=== PATIENT | female | born 1990 | race African-American/Black ===

== ENCOUNTER 2021-12-13 21:30 | Observation (INO) | payer BC, SELFPAY ==
[2021-12-13 21:53] VITALS: BP 134/72; PULSE 87
[2021-12-13 22:00] VITALS: BP 135/69; PULSE 83
[2021-12-13 22:15] VITALS: BP 142/83; PULSE 93
[2021-12-13 22:30] VITALS: BP 118/72; PULSE 114
[2021-12-13 22:45] VITALS: BP 100/86
--- NOTE | 2021-12-30 11:36 | PM.OBTRLD ---
OB - Triage/Final Diagnosis Visit Information Comments/Additional reasons for admission: I have assessed the risk for this patient, Nadine Armendariz, and determined that she would benefit from observation care. Final Diagnosis (1) Decreased movement: Code(s): O36.8190 - Decreased movements, unspecified trimester, not applicable or unspecified Status: Acute
== END 2021-12-13 23:02 | disposition home or self-care (01) ==
PROVIDERS: Admitting Provider Obstetrics & Gynecology; Visit Provider Obstetrics & Gynecology
DX: O36.8190 Decreased fetal movements, unspecified trimester, not applicable or unspecified (principal); Z3A.00 Weeks of gestation of pregnancy not specified
CPT/HCPCS: G0378; G0379

== ENCOUNTER 2022-01-31 09:59 | Observation (INO) | payer BC, MEDICAID, SELFPAY ==
[2022-01-31 10:20] VITALS: BP 123/69; PULSE 118; BMI 36.3
[2022-01-31 10:30] VITALS: BP 121/65; PULSE 93
--- NOTE | 2022-01-31 10:33 | OBADM ---
This patient, Nadine Armendariz, admitted to the OB room [facility] Post [facility] for observation. Patient/family oriented to hospital policies and general routines including ID bracelet, bed and alarms, visiting hours, pain management, procedures, bathroom and other care routines, personal items, smoking policy, room service/diet, and visiting hours. Patient/Family are encouraged to report perceived risks to care and to ask questions if they do not understand what they are told or what they should do.
[2022-01-31 10:45] VITALS: BP 123/68; PULSE 85
--- NOTE | 2022-01-31 11:02 | PC.NURSE ---
SVE 1/thick/soft/-3
--- NOTE | 2022-02-18 17:31 | PM.OBTRLD ---
OB - Triage/Final Diagnosis Visit Information Comments/Additional reasons for admission: I have assessed the risk for this patient, Nadine Armendariz, and determined that she would benefit from observation care. Final Diagnosis (1) Feeling pelvic pressure during , antepartum: Code(s): O26.899 - Other specified related conditions, unspecified trimester; R10.2 - Pelvic and perineal pain Status: Acute
== END 2022-01-31 11:05 | disposition home or self-care (01) ==
PROVIDERS: Admitting Provider Student in an Organized Health Care Education/Training Program; Visit Provider Student in an Organized Health Care Education/Training Program
DX: O26.899 Other specified pregnancy related conditions, unspecified trimester (principal); R10.9 Unspecified abdominal pain; Z3A.00 Weeks of gestation of pregnancy not specified
CPT/HCPCS: G0378; G0379

== ENCOUNTER 2022-02-01 15:10 | Outpatient (CLI) | payer BC, MEDICAID, SELFPAY ==
[2022-02-01 15:30] LABS: Basophils Percent Auto 0.2 % (0.2-1.2); Eosinophils Absolute Auto 0.1 K/mm3 (0-0.3); Eosinophils Percent Auto 1.3 % (0-4.4); Hematocrit 36.8 % (37.0-47.0); Hemoglobin 12.5 g/dL (12.0-15.0); Immature Granulocyte Absolute 0.08 K/mm3 (0.00-0.031); Immature Granulocyte Percent A 0.8 % (0-0.5); Lymphocytes Absolute Auto 1.98 K/mm3 (0.9-3.2); Lymphocytes Percent Auto 18.6 % (18.3-44.2); Mean Corpuscular Hemoglobin 33.3 pg (26-34); Mean Corpuscular Volume 98.1 fl (80-100); Mean Platelet Volume 11.5 fl (7.4-10.4); Monocytes Absolute Auto 0.9 K/mm3 (0.1-0.6); Monocytes Percent Auto 8.6 % (2.6-8.5); Neutrophils Absolute Auto 7.5 K/mm3 (1.3-6.7); Neutrophils Percent Auto 70.5 % (45.5-73.1); Platelet Count Result 222 k/mm3 (150-375); Red Blood Count 3.75 M/mm3 (4.2-5.4); Red Cell Distribution Width 13.4 % (11.5-14.5); White Blood Count 10.6 K/mm3 (4.5-10.0)
[2022-02-01 16:23] LABS: HIV 1/2 Ab P24 Ag Result Negative (Negative)
[2022-02-01 19:26] LABS: Hepatitis C Virus Antibody Negative (Negative)
[2022-02-02 11:53] LABS: Rapid Plasma Reagin Non-Reactive (NonReactive)
== END 2022-02-01 15:11 | disposition home or self-care (01) ==
LOC: ANHLAB 15:16
PROVIDERS: Visit Provider Student in an Organized Health Care Education/Training Program
DX: Z34.90 Encounter for supervision of normal pregnancy, unspecified, unspecified trimester (principal); Z3A.00 Weeks of gestation of pregnancy not specified
CPT/HCPCS: 36415; 85025; 86592; 86703; 86803; G0432

== ENCOUNTER 2022-02-12 16:41 | Observation (INO) | payer BC, MEDICAID, SELFPAY ==
[2022-02-12 17:20] VITALS: TEMP 36.3
[2022-02-12 17:31] VITALS: BP 112/58; PULSE 98
[2022-02-12 17:45] VITALS: BP 122/62; PULSE 97
[2022-02-12 18:00] VITALS: BP 115/61; PULSE 106
[2022-02-12 18:15] VITALS: BP 121/62; PULSE 101
[2022-02-12 18:30] VITALS: BP 115/64; PULSE 103
--- NOTE | 2022-03-17 10:04 | PM.OBTRLD ---
OB - Triage/Final Diagnosis Visit Information Comments/Additional reasons for admission: I have assessed the risk for this patient, Kleberjuvenal Lyssa Armendariz, and determined that she would benefit from observation care. Final Diagnosis (1) Irregular uterine contractions: Code(s): O47.9 - False labor, unspecified Status: Acute
== END 2022-02-12 19:24 | disposition home or self-care (01) ==
PROVIDERS: Admitting Provider Student in an Organized Health Care Education/Training Program; Visit Provider Student in an Organized Health Care Education/Training Program
DX: O47.9 False labor, unspecified (principal); Z3A.00 Weeks of gestation of pregnancy not specified; O36.8190 Decreased fetal movements, unspecified trimester, not applicable or unspecified
CPT/HCPCS: 84112; G0378; G0379

== ENCOUNTER 2022-02-23 04:40 | Inpatient (IN) | payer BC, MEDICAID, SELFPAY ==
[2022-02-23] VITALS (189 sets, daily range): BP systolic 82–147; BP diastolic 25–108; PULSE 56–163; RESP 16–18; TEMP 36.2–37.1; O2SAT 89–100; BMI 36.6
--- NOTE | 2022-02-23 04:40 | LDADM ---
This patient, Nadine Armendariz, was admitted to Labor/Delivery/Recovery 106 on 02/23/22 at 04:40. Plans for labor, pain management and were discussed with patient. Patient/family oriented to hospital policies and general routines including ID bracelet, bed and alarms, visiting hours, pain management, procedures, bathroom and other care routines, personal items, smoking policy, room service/diet and guest tray routines, security routines, and visiting hours. Patient/Family are encouraged to report perceived risks to care and to ask questions if they do not understand what they are told or what they should do. See OBIX for further documentation.
[2022-02-23 05:32] LABS: Basophils Percent Auto 0.3 % (0.2-1.2); Eosinophils Absolute Auto 0.2 K/mm3 (0-0.3); Eosinophils Percent Auto 1.5 % (0-4.4); Hematocrit 33.9 % (37.0-47.0); Hemoglobin 11.5 g/dL (12.0-15.0); Immature Granulocyte Absolute 0.09 K/mm3 (0.00-0.031); Immature Granulocyte Percent A 0.8 % (0-0.5); Lymphocytes Absolute Auto 2.93 K/mm3 (0.9-3.2); Lymphocytes Percent Auto 25.2 % (18.3-44.2); Mean Corpuscular HGB Conc 33.9 g/dl (32-36); Mean Corpuscular Hemoglobin 32.7 pg (26-34); Mean Corpuscular Volume 96.3 fl (80-100); Mean Platelet Volume 11.8 fl (7.4-10.4); Monocytes Absolute Auto 0.9 K/mm3 (0.1-0.6); Monocytes Percent Auto 7.4 % (2.6-8.5); Neutrophils Absolute Auto 7.6 K/mm3 (1.3-6.7); Neutrophils Percent Auto 64.8 % (45.5-73.1); Platelet Count Result 194 k/mm3 (150-375); Red Blood Count 3.52 M/mm3 (4.2-5.4); Red Cell Distribution Width 13.3 % (11.5-14.5); White Blood Count 11.6 K/mm3 (4.5-10.0)
[2022-02-23] MEDS: LACTATED RINGERS 1,000 ML 125 ML IV CONT ×4 (05:45→14:46)
[2022-02-23] MEDS: AMPICILLIN 2 GM/NS 100 ML 2 GM/100 ML BAG IVPB (05:47)
[2022-02-23] MEDS: OXYTOCIN 30 UNITS/NS 500 ML 30 UNITS/500 ML BAG 6 UNITS IV CONT (05:48)
--- NOTE | 2022-02-23 06:28 | P.PNAN_ITS ---
Anes - Eval Pre Procedure Procedure: Labor epidural Date/Time: 02/23/22 06:28 Surgeon: zayra Preop Diagnosis: pain during labor Pre Op Diagnosis: Induction Patient Data Age: 31 Gender: F Height: 1.65 m Weight: 100 kg Last Vital Signs Temp 36.8 C 02/23/22 05:40 Pulse 62 02/23/22 06:16 BP 122/59 L 02/23/22 06:16 O2 Del Method Room Air 02/23/22 05:18 Allergies Allergy/AdvReac Type Severity Reaction Status Date / Time cephalexin Allergy Intermediate rash Verified 02/17/22 14:32 cefaclor Allergy Mild rash Verified 02/17/22 14:32 Home Medications Medication Instructions Recorded Confirmed Type vitamin with calcium 1 tablet PO DAILY 01/31/22 02/23/22 History no.72-iron 27 mg-folic acid 1 mg tablet (PrePlus) Laboratory Tests 02/23/22 02/23/22 05:25 05:25 WBC 11.6 K/mm3 H K/mm3 (4.5-10.0) RBC 3.52 M/mm3 L M/mm3 (4.2-5.4) Hgb 11.5 g/dL L g/dL (12.0-15.0) Hct 33.9 % L % (37.0-47.0) MCV 96.3 fl fl (80-100) MCH 32.7 pg pg (26-34) MCHC 33.9 g/dl g/dl (32-36) RDW 13.3 % % (11.5-14.5) Plt Count 194 k/mm3 k/mm3 (150-375) MPV 11.8 fl H fl (7.4-10.4) Immature Gran % (Auto) 0.8 % H % (0-0.5) Neut % (Auto) 64.8 % % (45.5-73.1) Lymph % (Auto) 25.2 % % (18.3-44.2) [place] % (Auto) 7.4 % % (2.6-8.5) Eos % (Auto) 1.5 % % (0-4.4) Baso % (Auto) 0.3 % % (0.2-1.2) Lymph # (Auto) 2.93 K/mm3 K/mm3 (0.9-3.2) [place] # (Auto) 0.9 K/mm3 H K/mm3 (0.1-0.6) Eos # (Auto) 0.2 K/mm3 K/mm3 (0-0.3) Baso # (Auto) 0.0 K/mm3 K/mm3 (0.0-0.1) Abs Immat Gran (auto) 0.09 K/mm3 H K/mm3 (0.00-0.031) Absolute Neuts (auto) 7.6 K/mm3 H K/mm3 (1.3-6.7) Absolute Nucleated RBC 0.0 K/mm3 K/mm3 (0.0-0.012) Nucleated RBC % 0.0 % % (0.0-0.2) RPR Pending Patient hx anesthesia problems: none Family hx anesthesia problems: none Results Review: All pre-operative results and documents have been reviewed as part of the pre- operative evaluation. [facility] Past Medical History Medical History History of 1 Surgical History Surgical History History of dilatation and curettage 03/2009 Family History Family History Father Diabetes mellitus Mother Hypertension Grandparent Diabetes mellitus Grandparent Diabetes mellitus Social History Social History Smoking status: Never smoker Substance use: never Spiritual care concerns: No Exam Day of Procedure 02/23/22 06:28
[2022-02-23] MEDS: AMPICILLIN 1 GM/NS 50 ML 1 GM/50 ML BAG IVPB ×3 (09:42→17:56)
[2022-02-23] MEDS: fentaNYL CITRATE INJ (*CRX) 100 MCG/2 ML VIAL 50 MCG IV PUSH (10:59)
--- NOTE | 2022-02-23 11:43 | PM.IMHP ---
H&P: HPI History of Present Illness Date/Time: 02/23/22 11:43 Chief Complaint: Elective induction of labor Narrative: Patient is a 31-year-old currently 39 weeks 3 days gestation with JESICA 02/27/2022 who presented to labor and delivery for a scheduled elective induction of labor. In general, patient reports feeling well today without complaints. Reports occasional contractions. Denies any vaginal bleeding or leakage of fluid. Reports good movement. Review of Systems Review of Systems: All systems reviewed & are unremarkable except as noted in HPI and below Constitutional: Constitutional: Reports as per HPI and Reports no additional constitutional complaints Eyes: Eyes: Reports as per HPI and Reports no additional eye complaints ENT: Reports system reviewed and no additional complaints, except as documented and Reports as per HPI Cardiovascular: Cardiovascular: Reports as per HPI and Reports no additional cardiovascular complaints Respiratory: Respiratory: Reports as per HPI and Reports no additional respiratory complaints Gastrointestinal: Gastrointestinal: Reports as per HPI and Reports no additional gastrointestinal complaints Genitourinary: Genitourinary: Reports no additional female genitourinary complaints and Reports as per HPI Musculoskeletal: Musculoskeletal: Reports no additional musculoskeletal complaints and Reports as per HPI Integumentary/Breasts: Skin/Breast: Reports system reviewed and no additional complaints, except as docu and Reports as per HPI Neurologic: Reports system reviewed and no additional complaints, except as documented and Reports as per HPI Psychiatric: Psychiatric: Reports no additional psychiatric complaints and Reports as per HPI Endocrine: Endocrine: Reports no additional endocrine complaints and Reports as per HPI Hematologic/Lymphatic: Hematologic/Lymphatic: Reports no additional hematologic/lymphatic complaints and Reports as per HPI Allergic/Immunologic: Allergic/Immunologic: Reports no additional allergic/immunologic complaints and Reports as per HPI PMFSH Past Medical History Medical History History of 1 Surgical History Surgical History History of dilatation and curettage 03/2009 Family History Family History Father Diabetes mellitus Mother Hypertension Grandparent Diabetes mellitus Grandparent Diabetes mellitus Social History Social History Smoking status: Never smoker Substance use: never Spiritual care concerns: No Meds Home Medications and Allergies Home Medications Medication Instructions Recorded Confirmed Type vitamin with calcium 1 tablet PO DAILY 01/31/22 02/23/22 History no.72-iron 27 mg-folic acid 1 mg tablet (PrePlus) Allergies Allergy/AdvReac Type Severity Reaction Status Date / Time cephalexin Allergy Intermediate rash Verified 02/17/22 14:32 cefaclor Allergy Mild rash Verified 02/17/22 14:32 Vital Signs Vital Signs - 24 hr 02/23/22 05:18 02/23/22 05:27 02/23/22 05:31 Temperature Pulse Rate 86 78 Respiratory Rate Blood Pressure 125/66 130/66 Oxygen Delivery Room Air 02/23/22 06:01 02/23/22 05:40 02/23/22 06:16 Temperature 36.8 C Pulse Rate 71 62 Respiratory Rate Blood Pressure 133/59 L 122/59 L Oxygen Delivery 02/23/22 06:31 02/23/22 06:36 02/23/22 06:46 Temperature 36.3 C L Pulse Rate 62 87 Respiratory Rate 18 Blood Pressure 131/66 108/63 Oxygen Delivery 02/23/22 07:01 02/23/22 07:16 02/23/22 07:31 Temperature Pulse Rate 86 74 67 Respiratory Rate Blood Pressure 116/59 L 119/59 L 113/55 L Oxygen Delivery 02/23/22 07:46 02/23/22 08:01 02/23/22 08:16 Temperature Pulse Rate 82 98 69 Respirat
--- NOTE | 2022-02-23 12:41 | PM.OBPNLAB ---
Pain Control Date/time seen: 02/23/22 12:41 Patient doing well. SVE /-2. AROM performed, clear fluid noted. EFM category 1. [place] shows contractions q2-3 mins. Continue pitocin and abx for GBS prophylaxis. Continuous EFM and toco.
--- NOTE | 2022-02-23 14:13 | WPDANESEPPF ---
Anes - Initial Pre Proc Eval Date/Time: 02/23/22 14:13 Surgeon: Caitlyn Patel MD Pre Op Diagnosis: Induction Patient Data Age: 31 Gender: F Height: 1.65 m Weight: 100 kg Last Vital Signs Temp 36.2 C L 02/23/22 11:04 Pulse 68 02/23/22 14:10 Resp 16 02/23/22 11:04 BP 135/69 02/23/22 14:10 Pulse Ox 100 02/23/22 14:12 O2 Del Method Room Air 02/23/22 05:18 Allergies Allergy/AdvReac Type Severity Reaction Status Date / Time cephalexin Allergy Intermediate rash Verified 02/17/22 14:32 cefaclor Allergy Mild rash Verified 02/17/22 14:32 Home Medications Medication Instructions Recorded Confirmed Type vitamin with calcium 1 tablet PO DAILY 01/31/22 02/23/22 History no.72-iron 27 mg-folic acid 1 mg tablet (PrePlus) Laboratory Tests 02/23/22 02/23/22 02/23/22 05:25 05:25 05:25 WBC 11.6 K/mm3 H K/mm3 (4.5-10.0) RBC 3.52 M/mm3 L M/mm3 (4.2-5.4) Hgb 11.5 g/dL L g/dL (12.0-15.0) Hct 33.9 % L % (37.0-47.0) MCV 96.3 fl fl (80-100) MCH 32.7 pg pg (26-34) MCHC 33.9 g/dl g/dl (32-36) RDW 13.3 % % (11.5-14.5) Plt Count 194 k/mm3 k/mm3 (150-375) MPV 11.8 fl H fl (7.4-10.4) Immature Gran % (Auto) 0.8 % H % (0-0.5) Neut % (Auto) 64.8 % % (45.5-73.1) Lymph % (Auto) 25.2 % % (18.3-44.2) [place] % (Auto) 7.4 % % (2.6-8.5) Eos % (Auto) 1.5 % % (0-4.4) Baso % (Auto) 0.3 % % (0.2-1.2) Lymph # (Auto) 2.93 K/mm3 K/mm3 (0.9-3.2) [place] # (Auto) 0.9 K/mm3 H K/mm3 (0.1-0.6) Eos # (Auto) 0.2 K/mm3 K/mm3 (0-0.3) Baso # (Auto) 0.0 K/mm3 K/mm3 (0.0-0.1) Abs Immat Gran (auto) 0.09 K/mm3 H K/mm3 (0.00-0.031) Absolute Neuts (auto) 7.6 K/mm3 H K/mm3 (1.3-6.7) Absolute Nucleated RBC 0.0 K/mm3 K/mm3 (0.0-0.012) Nucleated RBC % 0.0 % % (0.0-0.2) RPR Pending Blood Type O Positive Antibody Screen Negative Patient hx anesthesia problems: none Family hx anesthesia problems: none Results Review: All pre-operative results and documents have been reviewed as part of the pre-operative evaluation. [facility] Past Medical History Medical History History of 1 Surgical History Surgical History History of dilatation and curettage 03/2009 Family History Family History Father Diabetes mellitus Mother Hypertension Grandparent Diabetes mellitus Grandparent Diabetes mellitus Social History Social History Smoking status: Never smoker Substance use: never Spiritual care concerns: No Anes - Eval Final PreProcedure Day of Procedure 02/23/22 14:13 Patient weight: obese Neurological: alert and oriented Anesthetic plan: proceed Anesthesia type and monitoring: regional epidural and standard monitoring Results Review: All pre-operative results and documents have been reviewed as part of the pre-operative evaluation. Informed Consent: The patient's anesthetic plan and its attendant risks and benefits were discussed with the patient/family/POA. Questions were solicited and answers provided to the satisfaction of the patient/family/POA.
--- NOTE | 2022-02-23 16:20 | WPDHPUPDATE1 ---
History and Physical Update Update Date/Time: 02/23/22 11:50 History and Physical has been reviewed, including an updated exam of the patient. There are NO changes in the patient's condition. Risks, benefits, and alternatives have been discussed and questions answered. Patient agrees to proceed with procedure.
[2022-02-23] MEDS: OXYTOCIN 30 UNITS/NS 500 ML 30 UNITS/500 ML BAG 125 UNITS IV CONT (21:20)
--- NOTE | 2022-02-23 21:24 | P.PCNOB_ITS ---
OB - Delivery Note Procedure Delivery date: 02/23/22 Procedure: The patient is a 31-year-old now who presented to labor and delivery on the morning of 02/23/2022 at 39 weeks 3 days gestation for scheduled elective induction of labor. Patient was approximately 3 cm dilated at time of admission. Patient was started on antibiotics for GBS prophylaxis. Pitocin was started for induction of labor. Pitocin was slowly titrated throughout the morning, afternoon, and evening. Artificial rupture of membranes was performed at 12:11 p.m. Clear amniotic fluid was noted. Pitocin was continued. Patient became uncomfortable and requested an epidural for pain management which was pl aced without difficulty. An IUPC was placed for enhanced monitoring. Patient eventually progressed to fully dilated at 7:50 p.m. Patient was encouraged to push and found to be pushing well. She was prepped and draped for delivery. At 9:00 p.m., patient delivered infant head atraumatically and without difficulty in direct OA presentation. A compound presentation was noted as a hand delivered alongside face. Occiput restituted to maternal right side. With subsequent push, the infant's neck, shoulders, and rest of body delivered without difficulty. Terminal meconium was noted. Infant was noted to be floppy immediately after delivery. Infant was placed on maternal abdomen where care was assumed by awaiting nursing staff. Cord was clamped and cut. A segment of cord was collected for cord gases. Cord blood was collected. The placenta was delivered spontaneous and intact. Uterine fundus was noted to be firm with massage. On inspection, a superficial periurethral abrasion was noted. Gentle pressure was applied to area and abrasion was noted to be hemostatic. Estimated blood loss for entire delivery was 150 cc. The was a live-born male infant, Apgars 5 and 9, weighing 7 lbs. 5 oz. Both mother and baby doing well at end of delivery. Events: Elective Induction of Labor and Positive Group B Strep (GBS) Induction method: Per Pitocin Protocol Delivery augmentation: Rupture of Membranes Delivery monitor: External FHT, External Uterine and Internal Uterine Route of delivery: Laceration Description: Periurethral (superficial abrasion-no repair required) Specimen: Yes (cord blood and cord gases) Quantitative Blood Loss (ml): 150 Anesthesia type: Epidural Disposition: Floor Complications: No immediate complications [place] Baby Date of : 02/23/22 Time of : 21:00 Weeks of gestation at delivery: 39 (39.3) Weight (pounds): 7 Weight (ounces): 5 presentation: compound position: Other (direct OA) Placenta delivery description: Spontaneous Cord Vessel Description: 3 Vessels score one minute: 5 score five minutes: 9 AMG Delivery Billing Delivery Delivery: Delivery Charge
[2022-02-24] VITALS: BP 126/54; PULSE 98; RESP 16; TEMP 36.7
[2022-02-24] MEDS: IBUPROFEN 600 MG TABLET PO ×3 (03:05→17:02)
[2022-02-24 05:09] LABS: Hematocrit 34.4 % (37.0-47.0); Hemoglobin 11.8 g/dL (12.0-15.0)
[2022-02-24 07:29] LABS: Rapid Plasma Reagin Non-Reactive (NonReactive)
[2022-02-24 07:40] VITALS: BP 123/48; PULSE 74; RESP 18; TEMP 36.4; O2SAT 100
--- NOTE | 2022-02-24 09:16 | PM.OBPNVD ---
OB - PN: Subj Subjective Date/time seen: 02/24/22 09:16 Patient doing well this morning. Reports back pain that is well controlled medication. Minimal lochia. Ambulating without difficulty. OB - PN: Obj Data Labs CBC & Chem 7: 02/24/22 03:09 Labs: Laboratory Results - last 24 hr 02/23/22 02/24/22 05:25 03:09 Hgb 11.8 L Hct 34.4 L RPR Non-reactive OB - PN A/P Assessment and Plan (1) Normal spontaneous vaginal delivery: Code(s): O80 - Encounter for full-term uncomplicated delivery Status: Acute Assessment and Plan: PPD#1 doing well continue routine care anticipate dc home tomorrow Time Spent With Patient Time: Total time spent is greater than 50% in coordination of care (as documented) at patient's floor/unit and/or counseling patient: Exam Const: General: cooperative, healthy appearing, comfortable and no acute distress GI: Inspection: non-distended GI Palp: Yes Soft to palpation and No Tenderness to palpation present (GI) Extrem: Right lower extremity: no edema Left lower extremity: no edema Other: no calf tenderness
[2022-02-24] MEDS: MULTIVIT/MIN/PREN/FOL AC/IRON TABLET 1 TAB PO (09:40)
--- NOTE | 2022-02-24 09:46 | WPDANLDPN2 ---
Anes-Prog Note L&D Date/Time: 02/24/22 09:46 Comfortable throughout: labor and delivery Neuraxial method: epidural Epidural/Spinal procedure site: tender Neuro status: Neuro function grossly intact. Cardiovascular status: normal Respiratory status: normal Airway patency: baseline Mental status: baseline Post-Op hydration status: normal Vital Signs: Last Vital Signs Temp 97.5 F L 02/24/22 07:40 Pulse 74 02/24/22 07:40 Resp 18 02/24/22 07:40 BP 123/48 L 02/24/22 07:40 Pulse Ox 100 02/24/22 07:40 O2 Del Method Room Air 02/23/22 05:18 Pain score (VAS): 110 I/O: Intake & Output 02/23/22 02/24/22 02/24/22 23:59 07:59 15:59 Output Total 150 Balance -150 Post-procedural complaints: none Patient feedback: Patient satisfied with anesthetic care.
[2022-02-24 12:02] VITALS: BP 125/59; PULSE 80; RESP 16; TEMP 36.6; O2SAT 100
[2022-02-24 16:45] VITALS: BP 112/59; PULSE 76; RESP 18; TEMP 36.4
[2022-02-24] MEDS: DOCUSATE SODIUM 100 MG CAPSULE PO (17:02)
[2022-02-24] MEDS: DIBUCAINE 1% OINTMENT 30 GM TUBE 1 APPLIC TOPICAL (17:02)
[2022-02-24 18:55] VITALS: BP 124/72; PULSE 65; RESP 16; TEMP 36.8
[2022-02-25 07:30] VITALS: BP 101/51; PULSE 72; RESP 16; TEMP 36.8; O2SAT 100
[2022-02-25] MEDS: IBUPROFEN 600 MG TABLET PO (08:05)
[2022-02-25] MEDS: DOCUSATE SODIUM 100 MG CAPSULE PO (08:06)
[2022-02-25] MEDS: MULTIVIT/MIN/PREN/FOL AC/IRON TABLET 1 TAB PO (08:06)
--- NOTE | 2022-02-25 10:00 | P.DS_ITS ---
DS: Admitting Diagnosis Discharge Date 02/25/22 Admitting Diagnosis IUP at 39w3d Elective induction of labor OB - DS: Summary OB Procedures : None OB Procedures Intrapartum: Spontaneous Vag Delivery and GBS prophylaxis OB Procedures: : None Time Spent with Patient Time attestation: Total time spent providing and/or coordinating discharge services: Discharge Plan Discharge Attending physician on discharge: Caitlyn Patel Discharging Clinician: Caitlyn Patel Anticipated Discharge Date/Time: 02/25/22 10:00 Patient Disposition: Home, Self-Care Activity: as tolerated and pelvic rest Diet: regular Discharge Instructions: Call office ([phone]) to schedule a visit in 4-6 weeks. You may take Ibuprofen 600mg every 6 hours as needed for pain. Pain medication may make you constipated. It may be helpful to take an ienx-zrt-bxtkkyi stool softener, such as Colace and/or Senokot, along with the pain medication to help lessen constipation. Call office or go to ED for pain not controlled with medication, headache, chest pain, shortness of breath, fever, chills, persistent nausea or vomiting, severe abdominal pain, heavy vaginal bleeding >2 pads/hour, foul vaginal discharge or odor, or problems with your breasts. Patient Instructions: Antibiotic Form Stand Alone Forms: General Discharge Information Follow-up/Referrals: Caitlyn Patel MD [Physician] - Discharge Medications: Continued PrePlus 27 mg iron- 1 mg tablet 1 tablet PO DAILY Date of admission: 02/23/22 04:40 Primary Care Provider: PHYSICIAN,NEWSPAPER COPY EDITOR Admitting Provider: Caitlyn Patel Attending physician on admission: Caitlyn Patel Condition: Stable
--- NOTE | 2022-02-25 10:00 | PM.OBPNVD ---
OB - PN: Subj Subjective Date/time seen: 02/25/22 10:00 Patient doing well. Minimal discomfort well controlled with medication. Minimal lochia. Voiding well. Ambulating without difficulty. OB - PN: Obj Data Labs CBC & Chem 7: 02/24/22 03:09 OB - PN A/P Assessment and Plan (1) Normal spontaneous vaginal delivery: Code(s): O80 - Encounter for full-term uncomplicated delivery Status: Acute Assessment and Plan: PPD#2 doing well continue routine care dc home today emergency precautions reviewed f/u in office in 4-6 weeks for visit Time Spent With Patient Time: Total time spent is greater than 50% in coordination of care (as documented) at patient's floor/unit and/or counseling patient: Exam Const: General: cooperative, healthy appearing, comfortable and no acute distress GI: Inspection: non-distended GI Palp: Yes Soft to palpation and No Tenderness to palpation present (GI) Other: fundus firm below umbilicus Extrem: Right lower extremity: no edema Left lower extremity: no edema Other: no calf tenderness
[2022-02-26 09:19] VITALS: BP 136/81; PULSE 89; RESP 20; TEMP 36.9; O2SAT 100
== END 2022-02-25 11:37 | disposition home or self-care (01) | DRG 807 ==
LOC: ANHLDR 04:44 → ANHOB2 23:42
PROVIDERS: Admitting Provider Student in an Organized Health Care Education/Training Program; Visit Provider Student in an Organized Health Care Education/Training Program
DX: O32.6XX0 Maternal care for compound presentation, not applicable or unspecified (principal); Z37.0 Single live birth; O71.82 Other specified trauma to perineum and vulva; O99.824 Streptococcus B carrier state complicating childbirth; O76 Abnormality in fetal heart rate and rhythm complicating labor and delivery; Z3A.39 39 weeks gestation of pregnancy
CPT/HCPCS: 36415; 85014; 85018; 85025; 86592; 86850; 86900; 86901; A9270; J0290; J2590; J2795; J3010; J7120

== ENCOUNTER 2022-09-06 11:16 | Outpatient (CLI) | payer BC, MEDICAID, SELFPAY ==
[2022-09-06 13:19] LABS: HIV 1/2 Ab P24 Ag Result Negative (Negative)
[2022-09-06 13:41] LABS: Hepatitis B Surface Antigen Negative (Negative)
[2022-09-06 13:58] LABS: Hepatitis C Virus Antibody Negative (Negative)
[2022-09-10 21:45] LABS: HSV 1 IgM Screen Negative (Negative); HSV 2 IgM Screen Negative (Negative)
== END 2022-09-06 11:17 | disposition home or self-care (01) ==
LOC: ANHLAB 11:18
PROVIDERS: Visit Provider Student in an Organized Health Care Education/Training Program
DX: Z20.2 Contact with and (suspected) exposure to infections with a predominantly sexual mode of transmission (principal)
CPT/HCPCS: 36415; 86695; 86696; 86703; 86803; 87340; G0432

== ENCOUNTER 2022-12-14 08:29 | Emergency (ER) | payer BC, MEDICAID, SELFPAY ==
--- NOTE | ~2022-12-14 | XR_ITS ---
XR chest 1V portable DATE: 12/14/2022 08:50 INDICATION: Chest pressure, chest tightness starting today TECHNIQUE: Portable upright AP chest on 12/14/2022 at 0846 hours COMPARISON: January 04, 2017 PA and lateral chest FINDINGS: Normal heart size. No hilar or mediastinal enlargement. No pulmonary infiltrate or consolid ation, pleural effusion or pulmonary vascular congestion or pneumothorax. Included skeletal structures are unremarkable. IMPRESSION: Negative Reviewed, dictated and finalized at location B. IMPRESSION: Negative
--- NOTE | 2022-12-14 08:32 | ECG_ITS ---
Measurements Intervals [place] Rate: 54 P: 65 RI: 148 QRS: 68 QRSD: 90 T: 55 QT: 393 QTc: 375 Interpretive Statements SINUS BRADYCARDIA BASELINE WANDER- I, II, AVR, AVL, AVF, V4-V6 BORDERLINE ECG NO PREVIOUS ECG AVAILABLE FOR COMPARISON Electronically Signed On 12-14-2022 9:50:10 CDT by Matt Birmingham D.O.
[2022-12-14] MEDS: ASPIRIN 81 MG CHEWABLE TABLET 324 MG PO (08:37)
[2022-12-14 08:39] VITALS: BP 133/77; PULSE 60; RESP 14; TEMP 36.9; O2SAT 100
[2022-12-14 08:46] LABS: Basophils Percent Auto 0.4 % (0.2-1.2); Eosinophils Absolute Auto 0.3 K/mm3 (0-0.3); Eosinophils Percent Auto 3.5 % (0-4.4); Hematocrit 39.8 % (37.0-47.0); Hemoglobin 13.2 g/dL (12.0-15.0); Immature Granulocyte Absolute 0.02 K/mm3 (0.00-0.031); Immature Granulocyte Percent A 0.3 % (0-0.5); Lymphocytes Absolute Auto 3.38 K/mm3 (0.9-3.2); Mean Corpuscular HGB Conc 33.2 g/dl (32-36); Mean Corpuscular Hemoglobin 32.7 pg (26-34); Mean Corpuscular Volume 98.5 fl (80-100); Mean Platelet Volume 11.1 fl (7.4-10.4); Monocytes Absolute Auto 0.6 K/mm3 (0.1-0.6); Monocytes Percent Auto 7.5 % (2.6-8.5); Neutrophils Absolute Auto 3.3 K/mm3 (1.3-6.7); Neutrophils Percent Auto 43.3 % (45.5-73.1); Platelet Count Result 261 k/mm3 (150-375); Red Blood Count 4.04 M/mm3 (4.2-5.4); Red Cell Distribution Width 12.3 % (11.5-14.5); White Blood Count 7.5 K/mm3 (4.5-10.0)
[2022-12-14 08:56] LABS: Prothrombin Time 12.9 Seconds (11.1-14.7)
[2022-12-14 09:04] VITALS: PULSE 64; RESP 15; O2SAT 100
[2022-12-14 09:09] LABS: Alanine Aminotransferase 17 U/L (6-35); Albumin Level 4.2 g/dL (3.5-5.1); Alkaline Phosphatase 60 U/L (38-126); Anion Gap 6 mmol/L (8-16); Aspartate Amino Transferase 18 U/L (14-36); Bilirubin,Total 0.4 mg/dL (0.2-1.3); Blood Urea Nitrogen 9 mg/dL (7-17); Carbon Dioxide 27 mmol/L (22-30); Chloride 106 mmol/L (98-107); Estimated CRCL calculation 115 ml/min; Estimated Glomerular Filt Rate > 60; Glucose 96 mg/dL (65-110); Lipase 82 U/L (23-300); Potassium 3.9 mmol/L (3.4-5.0); Sodium 139 mmol/L (137-145)
[2022-12-14] MEDS: SODIUM CHLORIDE 0.9% IV 1,000 ML 999 ML IV CONT (09:14)
[2022-12-14] MEDS: KETOROLAC 30 MG/ML VIAL (*BKC) IV PUSH (09:16)
[2022-12-14 09:20] LABS: Troponin I < 0.012 ng/mL (0.000-0.034)
[2022-12-14 09:46] VITALS: BP 120/80; PULSE 62; RESP 17; O2SAT 100
--- NOTE | 2022-12-14 10:58 | PC.NURSE ---
Receive report from MYNOR Pinto assumed pt care at this time.
[2022-12-14 11:00] VITALS: BP 115/61; PULSE 57; RESP 12; O2SAT 100
[2022-12-14 11:59] LABS: Troponin I < 0.012 ng/mL (0.000-0.034)
[2022-12-14 12:00] VITALS: BP 115/61; PULSE 70; RESP 18; O2SAT 99
--- NOTE | 2022-12-14 12:00 | ED.CHESTPAIN ---
HPI - Chest Pain General Chief Complaint: Chest Pain Stated Complaint: cp Time Seen by Provider: 12/14/22 08:36 History of Present Illness HPI narrative: Patient is a 32-year-old female who presents ER with chest pain. Began at 4 AM. Tight and aching to the central chest. Worse with physical movements of the upper body. No runny nose or sore throat or productive cough. No history of heart disease personally or in her family at a young age. No LOC. No alleviating factors other than rest. Related Data Allergies Allergy/AdvReac Type Severity Reaction Status Date / Time cephalexin Allergy Intermediate rash Verified 12/14/22 08:44 cefaclor Allergy Mild rash Verified 12/14/22 08:44 Review of Systems Review of Systems: All systems reviewed & are unremarkable except as noted in HPI and below Constitutional: Constitutional: Denies chills, Denies fatigue and Denies fever(s) ENT: Denies nasal congestion and Denies sore throat Cardiovascular: Cardiovascular: Reports chest pain, Denies rapid heart rate and Denies radiating jaw, neck or arm pain Respiratory: Respiratory: Denies cough and Denies dyspnea Gastrointestinal: Gastrointestinal: Denies abdominal pain, Denies nausea and Denies vomiting PMFSH Past Medical History Medical History History of 1 Surgical History Surgical History History of dilatation and curettage 03/2009 Family History Family History Father Diabetes mellitus Mother Hypertension Grandparent Diabetes mellitus Grandparent Diabetes mellitus Social History Social History Smoking status: Never smoker Substance use: never Spiritual care concerns: No Exam Narrative: GENERAL: Well-appearing, well-nourished, and in no acute distress. HEAD: Normocephalic, atraumatic. EYES: PERRL and EOMI. ENT: Mucous membranes moist. CHEST: Clear to auscultation. No respiratory distress. No palpation anterior chest wall. HEART: Regular rate and rhythm. Normal peripheral pulses. ABDOMEN: Soft, nontender, nondistended. EXTREMITIES: Normal range of motion. No edema. SKIN: Warm, dry, no rash. NEURO: Alert and oriented x3. PSYCH: Normal mood and affect. Course Course Emergency Course: Pain resolved with Toradol. Troponin negative. Normal EKG. Follow-up with PCP Vital Signs Vital signs: Vital Signs Temperature 98.4 F 12/14/22 08:39 Pulse Rate 60 12/14/22 08:39 Respiratory Rate 14 12/14/22 08:39 Blood Pressure 133/77 12/14/22 08:39 Pulse Oximetry 100 12/14/22 08:39 Oxygen Delivery Room Air 12/14/22 08:39 Temperature 98.4 F 12/14/22 08:39 Pulse Rate 78 12/14/22 12:12 Respiratory Rate 16 12/14/22 12:12 Blood Pressure 130/88 12/14/22 12:12 Pulse Oximetry 98 12/14/22 12:12 Oxygen Delivery Room Air 12/14/22 09:00 MDM - Chest Pain Lab Data 12/14/22 08:39 12/14/22 08:39 Labs: Lab Results 12/14/22 12/14/22 12/14/22 Range/Units 08:39 08:39 08:39 WBC 7.5 (4.5-10.0) K/mm3 RBC 4.04 L (4.2-5.4) M/mm3 Hgb 13.2 (12.0-15.0) g/dL Hct 39.8 (37.0-47.0) % MCV 98.5 (80-100) fl MCH 32.7 (26-34) pg MCHC 33.2 (32-36) g/dl RDW 12.3 (11.5-14.5) % Plt Count 261 (150-375) k/mm3 MPV 11.1 H (7.4-10.4) fl Immature Gran % (Auto) 0.3 (0-0.5) % Neut % (Auto) 43.3 L (45.5-73.1) % Lymph % (Auto) 45.0 H (18.3-44.2) % [place] % (Auto) 7.5 (2.6-8.5) % Eos % (Auto) 3.5 (0-4.4) % Baso % (Auto) 0.4 (0.2-1.2) % Lymph # (Auto) 3.38 H (0.9-3.2) K/mm3 [place] # (Auto) 0.6 (0.1-0.6) K/mm3 Eos # (Auto) 0.3 (0-0.3) K/mm3 Baso # (Auto) 0.0 (0.0-0.1) K/mm3 Abs Immat Gran (auto) 0.02 (0.00-0.031) K/mm3 Absolute Neuts (auto)
[2022-12-14 12:12] VITALS: BP 130/88; PULSE 78; RESP 16; O2SAT 98
== END 2022-12-14 12:13 | disposition home or self-care (01) ==
PROVIDERS: Emergency Provider Emergency Medicine; PCP Emergency Medicine
DX: R07.89 Other chest pain (principal)
CPT/HCPCS: 36415; 71045; 80053; 83690; 84484; 85025; 85610; 85730; 93005; 96361; 96374; 99284; A9270; J1885; J7030

== ENCOUNTER 2022-12-23 09:26 | Outpatient (CLI) | payer MEDICAID, SELFPAY ==
[2022-12-23 10:37] LABS: HIV 1/2 Ab P24 Ag Result Negative (Negative)
[2022-12-23 10:44] LABS: Hepatitis B Surface Antigen Negative (Negative)
[2022-12-23 11:01] LABS: Hepatitis C Virus Antibody Negative (Negative)
[2022-12-23 13:06] LABS: Rapid Plasma Reagin Non-Reactive (NonReactive)
== END 2022-12-23 09:27 | disposition home or self-care (01) ==
PROVIDERS: PCP Emergency Medicine; Visit Provider Registered Nurse
DX: Z11.3 Encounter for screening for infections with a predominantly sexual mode of transmission (principal)
CPT/HCPCS: 36415; 86592; 86703; 86803; 87340; G0432

== ENCOUNTER 2023-05-03 10:58 | Outpatient (CLI) | payer BC, MEDICAID, SELFPAY ==
[2023-05-03 12:24] LABS: HIV 1/2 Ab P24 Ag Result Negative (Negative)
[2023-05-03 13:54] LABS: Rapid Plasma Reagin Non-Reactive (NonReactive)
[2023-05-03 14:41] LABS: Hepatitis B Surface Antigen Negative (Negative)
[2023-05-03 14:58] LABS: Hepatitis C Virus Antibody Negative (Negative)
== END 2023-05-03 10:59 | disposition home or self-care (01) ==
PROVIDERS: PCP Emergency Medicine; Visit Provider Registered Nurse
DX: Z11.3 Encounter for screening for infections with a predominantly sexual mode of transmission (principal)
CPT/HCPCS: 36415; 86592; 86695; 86696; 86703; 86803; 87340; G0432

== ENCOUNTER 2023-08-03 11:10 | Outpatient (CLI) | payer OTHER, SELFPAY ==
[2023-08-03 12:19] LABS: Hepatitis B Surface Antigen Negative (Negative)
[2023-08-03 12:24] LABS: HIV 1/2 Ab P24 Ag Result Negative (Negative)
[2023-08-03 12:37] LABS: Hepatitis C Virus Antibody Negative (Negative)
[2023-08-03 12:44] LABS: Rapid Plasma Reagin Non-Reactive (NonReactive)
[2023-08-09 07:02] LABS: Prolactin 24.4 ng/mL (***)
== END 2023-08-03 11:11 | disposition home or self-care (01) ==
LOC: ANHLAB 11:12
PROVIDERS: Visit Provider Obstetrics & Gynecology
DX: Z11.3 Encounter for screening for infections with a predominantly sexual mode of transmission (principal); N64.3 Galactorrhea not associated with childbirth
CPT/HCPCS: 36415; 84146; 86592; 86695; 86696; 86703; 86803; 87340; G0432

== ENCOUNTER 2023-11-22 15:03 | Outpatient (CLI) | payer OTHER, SELFPAY ==
[2023-11-22 16:15] LABS: HIV 1/2 Ab P24 Ag Result Negative (Negative)
[2023-11-22 16:36] LABS: Hepatitis B Surface Antigen Negative (Negative)
[2023-11-22 16:53] LABS: Hepatitis C Virus Antibody Negative (Negative)
[2023-11-23 11:12] LABS: Rapid Plasma Reagin Non-Reactive (NonReactive)
== END 2023-11-22 15:04 | disposition home or self-care (01) ==
LOC: ANHLAB 15:05
PROVIDERS: Visit Provider Nurse Practitioner Family
DX: Z11.3 Encounter for screening for infections with a predominantly sexual mode of transmission (principal)
CPT/HCPCS: 36415; 86592; 86703; 86803; 87340; G0432

== ENCOUNTER 2023-12-15 11:30 | Outpatient (CLI) | payer OTHER, SELFPAY ==
[2023-12-15 12:51] LABS: Hematocrit 37.5 % (37.0-47.0); Hemoglobin 12.2 g/dL (12.0-15.0); Mean Corpuscular HGB Conc 32.5 g/dl (32-36); Mean Corpuscular Hemoglobin 31.2 pg (26-34); Mean Corpuscular Volume 95.9 fl (80-100); Mean Platelet Volume 11.4 fl (7.4-10.4); Platelet Count Result 272 k/mm3 (150-375); Red Blood Count 3.91 M/mm3 (4.2-5.4); Red Cell Distribution Width 12.6 % (11.5-14.5); White Blood Count 6.3 K/mm3 (4.5-10.0)
[2023-12-15 12:52] LABS: Alanine Aminotransferase 13 U/L (6-35); Albumin Level 4.2 g/dL (3.5-5.1); Alkaline Phosphatase 64 U/L (38-126); Anion Gap 4 mmol/L (4-12); Aspartate Amino Transferase 22 U/L (14-36); Bilirubin,Total 0.5 mg/dL (0.2-1.3); Blood Urea Nitrogen 6 mg/dL (7-17); Calcium 9.2 mg/dL (8.4-10.2); Carbon Dioxide 28 mmol/L (22-30); Chloride 106 mmol/L (98-107); Cholesterol 153 mg/dL (0-200); Estimated Glomerular Filt Rate > 60; Glucose 91 mg/dL (65-110); HDL Direct 45 mg/dL; Potassium 3.9 mmol/L (3.4-5.0); Sodium 138 mmol/L (137-145); Triglycerides 66 mg/dL (<150)
[2023-12-15 13:03] LABS: LDL Cholesterol Direct 93 mg/dL
[2023-12-15 13:19] LABS: Hemoglobin A1C 5.3 % (<5.7)
[2023-12-15 13:20] LABS: Creatinine Urine 290.8 mg/dL
[2023-12-15 13:21] LABS: MALB Creatinine Ratio 8.9 mg/g (0-30); Microalbumin Urine Random 25.8 mg/L (0-16.7)
[2023-12-15 13:31] LABS: Free T4 Free Thyroxine 1.04 ng/mL (0.78-2.19); Vitamin D 25 Hydroxy 22.2 ng/mL
== END 2023-12-15 11:31 | disposition home or self-care (01) ==
PROVIDERS: Visit Provider Emergency Medicine
DX: Z00.00 Encounter for general adult medical examination without abnormal findings (principal); F41.9 Anxiety disorder, unspecified; F32.9 Major depressive disorder, single episode, unspecified; K64.9 Unspecified hemorrhoids
CPT/HCPCS: 36415; 80053; 80061; 82043; 82306; 83036; 84439; 84443; 85027

== ENCOUNTER 2024-01-17 15:46 | Outpatient (CLI) | payer OTHER, SELFPAY ==
[2024-01-17 17:15] LABS: HIV 1/2 Ab P24 Ag Result Negative (Negative)
[2024-01-17 17:23] LABS: Hepatitis B Surface Antigen Negative (Negative)
[2024-01-17 17:41] LABS: Hepatitis C Virus Antibody Negative (Negative)
[2024-01-18 21:02] LABS: Rapid Plasma Reagin Non-Reactive (NonReactive)
== END 2024-01-17 15:47 | disposition home or self-care (01) ==
LOC: ANHLAB 15:50
PROVIDERS: Visit Provider Nurse Practitioner Family
DX: Z11.3 Encounter for screening for infections with a predominantly sexual mode of transmission (principal)
CPT/HCPCS: 36415; 86592; 86703; 86803; 87340; G0432

== ENCOUNTER 2024-10-24 16:35 | Outpatient (CLI) | payer OTHER, SELFPAY ==
--- OUTSIDE RECORDS SUMMARY | 2024-10-24 16:37 | XMS_ITS | Clinical Summary ---
Author Organization [facility] Address [address] [place] [address] Care Team Providers Care Web Content Executive Name Role Phone Narendra Holden MD Primary Care Provider [phone] Allergies Active Allergy Reactions Criticality Noted Date Comments Cefaclor Rash Medium 09/14/2021 Cephalexin Rash Medium 09/14/2021 Immunizations Name Administration Dates Next Due DTP 05/11/1992,1991,1991 HPV, Quadrivalent 04/03/2007,01/30/2007 Hep B Vaccine 07/12/2015 HiB 05/11/1992,01/27/1992,1991 Influenza, Trivalent, High D ose, Split, Preservative Free, Intramuscular 10/20/2014 Influenza, Trivalent, IM (MDV) 07/12/2015,2013 MMR 11/05/1992 OPV 05/11/1992,01/27/1992 Tdap 12/03/2021 Social History Tobacco Use Types Packs/Day Years Used Date Smoking Tobacco: Never Assessed Comments Unknown Sex and Gender Information Value Date Recorded Sex Assigned at Not on file Legal Sex Female 5:48 PM RN BEHAVIORAL HEALTH Gender Identity Not on file Sexual Orientation Not on file Obstetrics History Para Term AB IAB SAB Ectopic Multiple Livin g Live Births 1 Date Outcome GA Total Labor Labor/2nd/3rd Weight Sex Type Anes PTL Clarisa A1 A5 Name Clin Last Filed Vital Signs Vital Sign Reading Time Taken Comments Blood Pressure 124/61 09/15/2021 12:59 AM RN BEHAVIORAL HEALTH Pulse 72 09/15/2021 12:59 AM RN BEHAVIORAL HEALTH Temperature 36.7 C (98.1 F) 09/14/2021 8:58 PM RN BEHAVIORAL HEALTH Respiratory Rate 20 09/15/2021 12:59 AM RN BEHAVIORAL HE[facility] Oxygen Saturation 99% 09/14/2021 8:58 PM RN BEHAVIORAL HE[facility] Inhaled Oxygen Concentration - - Weight 92.7 kg (204 lb 5.9 oz) 09/14/2021 8:58 P M RN BEHAVIORAL HE[facility] Height 162.6 cm (5' 4 ) 09/14/2021 8:58 PM RN BEHAVIORAL HEALTH Body Mass Index 35.08 09/14/2021 8:58 PM RN BEHAVIORAL HEALTH Plan of Treatment Health Maintenance Due Date Last Done Comments Cervical Cancer Screening 1991 Depression Screening 1991 Hepatitis C Screening 1991 Varicella Vaccines (1 of 2 - 13+ 2-dose series) 2004 HPV Vaccines (3 - 3-dose series) 08/02/2007 04/03/2007, 01/30/2007 Regular Well Visit/Exam 18-64 2009 Covid-19 Vaccine ( season) 2024 07/13/2021, 06/12/2021 Influenza Vaccine (#1) 2024 5, 10/20/2014, 08/01/2014 DTaP/Tdap/Td Vaccine (5 - Td or Tdap) 12/04/2031 12/03/2021, 05/11/1992, 1991, Additional history exists Pneumococcal vaccine <65 Aged Out No longer eligible based on patient's age to complete this topic Insurance [facility] Care Teams Web Content Executive Relationship Specialty Start Date End Date Narendra Holden MD PCP - General 11/12/18
--- OUTSIDE RECORDS SUMMARY | 2024-10-24 16:37 | XMS_ITS | Referral Summary ---
Author Organization [facility] Address [address] [place] [address] Care Team Providers Care Television Newscast Director Name Role Phone Raleigh Barber MD Primary Care Provider Source Comments [facility],non-owned Affiliates and Associated Physician Practices is amultiple site organization consisting of ambulatory clinics and hospital sitesin [place], [place], [place] and [place]. This disclosure is being madepursuant to the Care Everywhere program and may not contain all information available regarding this patient. Last updated 18.[facility] Allergies Active Allergy Reactions Criticality Noted Date Comments Cefaclor Rash Medium 09/14/2021 Cephalexin Rash Medium 09/14/2021 Medications * Be aware that medications may not be up to date on this document. Alwaysverify current medications with the patient. Medication Sig Dispensed Refills Start Date End Date Status vitamin D, ergocalciferol, (Drisdol) 1.25 MG (16419 UT) capsule 12/28/2023 Active fluticasone propionate (Flonase) 50 MCG/ACT nasal spray 05/16/2023 Active cetirizine (ZyrTEC) 10 MG tablet 03/09/2023 Active terconazole (Terazol 3) 0.8 % vaginal cream 01/17/2024 Active gabapentin (Neurontin) 100 MG capsuleIndications :Episodic cluster headache, not intractable,Migrai ne without aura and without status migrainosus, not intractable,Tensio n headache,Rebound headache,Paresthes ia Take 1 (one) capsule by mouth at bedtime 30 capsule 5 01/29/2024 Active Additional Information Patient not taking.Reported on 02/29/2024 tobramycin-dexAMET Hasone (Tobradex) 0.3-0.1 % ophthalmic suspension Instill 1 (one) drop into left eye 3 times daily Until bottle runs out 03/08/2024 Active ketorolac (Toradol) 10 MG tablet Take 1 (one) tablet by mouth every 6 hours as needed for Pain 16 tablet 03/08/2024 Active Active Problems Problem Noted Date Diagnosed Date Bilateral carpal tunnel syndrome 01/12/2023 Chest pain 12/19/2022 01/12/2023 Dyspnea on exertion 12/19/2022 01/12/2023 Palpitations 12/19/2022 01/12/2023 Class 1 obesity with body ma ss index (BMI) of 34.0 to 34.9 in adult 10/13/2021 Resolved Problems Problem Noted Date Diagnosed Date Resolved Date Encounter for anatomic survey 10/07/2021 08/24/2022 Second 10/07/2021 08/24/2022 Overview (10/07/2021): O+/IMM/-/-/- Antibody-Neg 13.9/41.7 PLT 277 Materni 21-Neg 20 weeks gestation of 10/07/2021 08/24/2022 Immunizations Name Administration Dates Next Due INFLUENZA VACCINE, TRIV. (AF LURIA, FLUZONE TRIVALENT; 6MO+) (IIV3) 07/12/2015,08/01/2014 DTP 05/11/1992,1991,1991 HEP B VACCINE, ADULT 3 DOSE 07/12/2015 Human Papilloma Virus Quadrivalent Vaccine 04/03,01/30/2007 MMR 11/05/1992 POLIO OPV 05/11/1992,01/27/1992 Social History Tobacco Use Types Packs/Day Years Used Date Smoking Tobacco: Never Smokeless Tobacco: Never Tobacco Cessation:Counseling Given: Not Answered Alcohol Use Standard Drinks/Week Comments Yes 0 (1 standard drink = 0.6 oz pur e alcohol) social Sex and Gender Information Value Date Recorded Sex Assigned at Not on file Gender Identity Not on file Sexual Orientation Not on file Last Filed Vital Signs Vital Sign Reading Time Taken Comments Blood Pressure 105/57 03/08/2024 8:50 AM CDT Pulse 65 03/08/2024 8:50 AM CDT Temperature 36.3 C (97.4 F) 03/08/2024 8:30 AM CDT Respiratory Rate 15 03/08/2024 8:50 AM CDT Oxygen Saturation 98% 03/08/2024 8:50 AM CDT Inhaled Oxygen Concentration - - Weight 91.6 kg (202 lb) 03/08/2024 6:24 AM CDT Height 165.1 cm (5' 5 ) 03/08/2024 6:24 AM CDT Body Mass Index 33.61 03/08/2024 6:24 AM CDT Plan of Treatment Not on file Care Teams Television Newscast Director Relationship Specialty Start Date End Date Raleigh Barber MD [address] [place] [address] [address] [place] [address] PCP - General 08/22/22
--- OUTSIDE RECORDS SUMMARY | 2024-10-24 16:37 | XMS_ITS | Patient Health Summary ---
Author Organization [facility] Address [address] [facility] [place] [address] Care Team Providers Care Weaving Teacher Name Role Phone Raleigh Barber MD Primary Care Provider [phone] Note from Formerly named [facility],non-owned Affiliates and Associated Physician Practices is amultiple site organization consisting of ambulatory clinics and hospital sitesin [place], [place], [place] and [place]. This disclosure is being madepursuant to the Care Everywhere program and may not contain all information available regarding this patient. Last updated 18.[facility] Allergies * Cefaclor(Rash) -Medium Criticality * Cephalexin(Rash) -Medium Criticality Medications * Be aware that medications may not be up to date on this document. Alwaysverify current medications with the patient. * vitamin D, ergocalciferol, (Drisdol) 1.25 MG (48516 UT) capsule(Started 12/28/2023) * fluticasone propionate (Flonase) 50 MCG/ACT nasal spray(Started 05/16/2023) * cetirizine (ZyrTEC) 10 MG tablet(Started 03/09/2023) * terconazole (Terazol 3) 0.8 % vaginal cream(Started 01/17/2024) * gabapentin (Neurontin) 100 MG capsule(Started 01/29/2024) Take 1 (one) capsule by mouth at bedtime 5 refills by 01/28/2025 * tobramycin-dexAMETHasone (Tobradex) 0.3-0.1 % ophthalmic suspension(Started 03/08/2024) Instill 1 (one) drop into left eye 3 times daily Until bottle runs out * ketorolac (Toradol) 10 MG tablet(Started 03/08/2024) Take 1 (one) tablet by mouth every 6 hours as needed for Pain Active Problems Problem Noted Date Diagnosed Date Bilateral carpal tunnel syndrome 01/12/2023 Chest pain 12/19/2022 01/12/2023 Dyspnea on exertion 12/19/2022 01/12/2023 Palpitations 12/19/2022 01/12/2023 Class 1 obesity with body ma ss index (BMI) of 34.0 to 34.9 in adult 10/13/2021 Resolved Problems Problem Noted Date Diagnosed Date Resolved Date Encounter for anatomic survey 10/07/2021 08/24/2022 Second 10/07/2021 08/24/2022 20 weeks gestation of 10/07/2021 08/24/2022 Immunizations * INFLUENZA VACCINE, TRIV. (AFLURIA, FLUZONE TRIVALENT; 6MO+) (IIV3)(Given 07/12/2015, 08/01/2014) * DTP(Given 05/11/1992, 1991, 1991) * HEP B VACCINE, ADULT 3 DOSE(Given 07/12/2015) * Human Papilloma Virus Quadrivalent Vaccine(Given 04/03/2007, 01/30/2007) * MMR(Given 11/05/1992) * POLIO OPV(Given 05/11/1992, 01/27/1992) Social History Tobacco Use Types Packs/Day Years [...] Mass Index 33.61 03/08/2024 6:24 AM CDT Procedures * LARYNGEAL MASK AIRWAY(Performed 03/08/2024) * ME STRABISMUS SURG,TWO HORIZ MUSCLE(Performed 03/08/2024) Performed for Intermittent exotropia of left eye * HCG URINE QUALITATIVE - POCT (IP) INTERFACED(Performed 03/08/2024) * EYE EXAM(Performed 09/08/2023) * YING BLOOD SCREEN W/REFLEX TITER(Performed 01/12/2023) Performed for Bilateral carpal tunnel syndrome * HEMOGLOBIN A1C(Performed 01/12/2023) Performed for Bilateral carpal tunnel syndrome * LAB(Performed 08/03/2022) * LAB(Performed 07/29/2022) * XR ABDOMEN KUB(Performed 07/29/2022) * SONOGRAM - COMPLETE(Performed 10/13/2021) Performed for Encounter for anatomic survey (HCC), Second (HCC) Results * LARYNGEAL MASK AIRWAY (03/08/2024 7:36 AM CDT) Narrative Margarita Ovalles APRN-CRNA - 03/08/2024 7:36 AM CDT Margarita Ovalles APRN-CRNA 03/08/2024 7:36 AM LMA Placement Procedure/LDA Note: Patient Location: OR. Procedure: LMA Pretreatment: 100% O2 Induction: standard IV Patient position: sniffing. Mask Ventilation: not attempted Type: LMA Size: 4 Number of Attempts: 1. Placement verified by: bilateral breath sounds and CO2 monitor Dentition unchanged? Yes Staff Section Anesthesia Provider: Margarita Ovalles APRN-CRNA, Performed the procedure Raleigh Ceja MD GENERAL ANESTHESIA O RDERABLES * HCG URINE QUALITATIVE - POCT (IP) INTERFACED (03/08/2024 6:24 AM CDT) HCG Qual Urine Negative Negative 03/08/2024 6:31 AM CDT [facility] Urine URINE / Unknown 03/08/2024 6 :24 AM CDT 03/08/2024 6:31 AM CDT Shahriar Joya MD LAB - POINT OF CARE ORDERABLES [facility] [address] [place] [id number], [facility] [phone] * EYE EXAM (09/08/2023) Anatomical Region Laterality Modality Other Narrative 09/08/2023 Ordered by an unspecified provider. Scanned Document SCANNING ONLY * YING BLOOD SCREEN W/REFLEX TITER (01/12/2023 10:33 AM CDT) YING IgG None Detected None Detected 01/14/2023 7:05 AM CDT [employer] ([facility]) Comment: If suspicion of connective tissue disease is strong and YING EIA is negative, consider testing for YNIG by IFA ([id number]). INTERPRETIVE INFORMATION: Anti-Nuclear Antibodies (YING), IgG by MARQUEZ Antinuclear Antibodies (YING), IgG by MARQUEZ: YING specimens are screened using enzyme-linked immunosorbent assay (MARQUEZ) methodology. All MARQUEZ results reported as Detected are further tested by indirect fluorescent assay (IFA) using HEp-2 substrate with an IgG-specific conjugate. The YING MARQUEZ screen is designed to detect antibodies against dsDNA, histones, SS-A (Ro), SS-B (La), Riggs, Riggs/DESIGN PRINTING MACHINE SETTER, Scl-70, Shirley-1, centromeric proteins, other antigens extracted from the HEp-2 cell nucleus. YING MARQUEZ assays have been reported to have lower sensitivities than YING IFA for systemic autoimmune rheumatic diseases (SARD). Negative results do not necessarily rule out SARD. Performed By: [facility] [address] [place] [address] Chicken Fancier: Lupillo Klein MD, PhD Blood BLOOD SPECIMEN / Unknown Lab Venipuncture / Unknown 01/12/2023 10:33 AM CDT 01/12/2023 11:02 AM CDT Sahara Calderon MD LAB - CHEMISTRY ORDE GANESH [facility] [facility]) [address] * HEMOGLOBIN A1C (01/12/2023 10:33 AM CDT) Hemoglobin A1c 5.1 <=5.6 % 01/12/2023 2:19 PM CDT [facility] Estimated Average Glucose 100 mg/dL 01/12/2023 2:19 PM CDT [facility] Comment: HbA1c Interpretation: Normal : < 5.7% Pre-diabetes: 5.7-6.4% Diabetes: Equal to or greater than 6.5% Test results diagnostic of diabetes should be repeated for confirmation. Treatment target values recommended by ADA and other clinical organizations should be used to evaluate metabolic control in patients. Reference: [place] [employer] Association, Standards of Care in Diabetes -2020 In patients 70 years and older consider HbA1c target range of 7.0-7.5% (Reference: Agustin Mcbride et al. JAMDA. 2012) The Sebia assay for the measurement of HbA1c is a National Glycohemoglobin Standardization Program (NGSP) certified method. Blood BLOOD SPECIMEN / Unknown Lab Venipuncture / Unknown 01/12/2023 10:33 AM CDT 01/12/2023 11:03 AM CDT Sahara Calderon MD LAB - CHEMISTRY ELLIOTT ANDERSEN [facility] Organization Address City/State/ZIP Co de Phone Number [facility] [address] [place] [id number], [facility] [phone] * LAB (08/03/2022) Only the most recent of2 resultswithin the time period is included. Scanned Document SCANNING ONLY * XR ABDOMEN KUB (07/29/2022) Anatomical Region Laterality Modality Abdomen Other Scanned Document DIAGNOSTIC IMAGING O RDERABLES * SONOGRAM - COMPLETE (10/13/2021 11:25 AM TOOL CHASER) Anatomical Region Laterality Modality Other 10/13/2021 11:2 5 AM TOOL CHASER Narrative 10/13/2021 12:22 PM TOOL CHASER [facility] PHONE: FAX: Pat. Name: CAROLINA FISHER. No: [id number] Study Date: 10/13/2021 11:25am , Age: 11 1990, 31 Pregnancies: 2, Para 0 Height: 64 in Weight: 199 lb LMP: 05/23/2021 GA by LMP: 20w3d GA by US: 20w5d JESICA: 02/25/2022 GA Selected: 20w3d (LMP) JESICA: 02/27/2022 Referring MD: Eric Mcnamara MD Sparmaker: Shayy Koehler RDMS CPT4: 22779,43990 BMI: 34.15 Hist/Ind: Anatomy Screen LR NIPT (M) Class I Obesity MEASUREMENTS & AGE GROWTH EVALUATION Measurement GA Range Srce %for GA Ratios ----- ---- ------- BPD 4.8 cm 20w4d (12j1g-78n3g) Hadl BPD 59% FL/BPD 0.74 HC 17.6 cm 20w1d (91w6o-48x9k) Hadl HC 27% FL/AC 0.23 AC 15.6 cm 20w5d (86c4i-73b5v) Hadl AC 56% HC/AC 1.13 (1.06 - 1.24) FL 3.6 cm 21w2d (91x4l-89o6r) Hadl FL 73% CI 0.78 (0.70 - 0.86) HL 3.7 cm 22w5d (79k9g-82t4e) Jaswant HL 89% Cere 2.2 cm 20w3d (79t5b-91w1q) Nico Cere51% GA for sonogram 20w5d (03y0p-22m3w) Weight Estimate: based on (BPD,HC,AC,FL) Avg Weight: 387 gm (330-443gm) Hadloc : 0lbs, 13oz Normal: 358 gm (268-448gm) Hadloc Wt% 74% for 20w3d Cervix: Length: 3.9 cm Approach: transvaginal Heart Rate: 147 bpm Amniotic Fluid Index: 07.2cm (Deepest Pocket) EVAL, PLACENTA Presentation: breech Umbilical Cord: 3 Vessels Placenta: posterior Heart Rate: 147 bpm Amniotic Fluid Volume: normal Anatomy!Normal!Abnormal!Suboptimal!Prev. Seen!Comments Cranium ! x ! ! ! ! Mdl (CSP/Thal! x ! ! ! ! Ventricles ! x ! ! ! ! Choroid Plexu! x ! ! ! ! Cerebellum ! x ! ! ! ! Cerebellar Ve! x ! ! ! ! Cisterna M. ! x ! ! ! ! Nuchal Fold ! x ! ! ! ! Orbits ! x ! ! ! ! Profile ! x ! ! ! ! Nasal Bone ! x ! ! ! ! Lip ! x ! ! ! ! Maxilla ! x ! ! ! ! Mandible ! x ! ! ! ! Neck ! x ! ! ! ! Spine ! x ! ! ! ! Lungs ! x ! ! ! ! 4 Chamber Hea! x ! ! ! ! LVOT ! x ! ! ! ! RVOT ! x ! ! ! ! 3 Vessel View! x ! ! ! ! 3 Vessel Trac! x ! ! ! ! Cross-over ! x ! ! ! ! Ductal Arch ! x ! ! ! ! Aortic Arch ! x ! ! ! ! Caval View ! x ! ! ! ! Situs ! x ! ! ! ! Diaphragm ! x ! ! ! ! Stomach ! x ! ! ! ! Liver ! x ! ! ! ! Bowel ! x ! ! ! ! Kidneys ! x ! ! ! ! Bladder ! x ! ! ! ! 3 Vessel Cord! x ! ! ! ! Cord In! x ! ! ! ! Upper Extremi! x ! ! ! ! Hands ! x ! ! ! ! Lower Extremi! x ! ! ! ! Feet ! x ! ! ! ! External Keena! x ! ! ! !Male Placental Cor! x ! ! ! ! CLINICAL SUMMARY Study Number: 1 A single fetus is seen in breech presentation. The measurements today are consistent with appropriate interval growth. The JESICA is based on LMP and a prior ultrasound. The amniotic fluid volume is within normal limits. The anatomy was technically adequate. IMPRESSION: Single, live intrauterine at 20w3d size is within normal limits Amniotic fluid volume: within normal limits Reassuring transvaginal cervical length No major malformations were seen within the limitations of ultrasound. RECOMMEND: Ultrasound in Follow up as clinically indicated Thank you for allowing us the opportunity to care for your patient. Eric Young MD <Electronic Signature> 10/13/2021 12:20pm Ordering Provider Unlisted MD STEFANIE CARMICHAEL [facility] Care Teams Weaving Teacher Relationship Specialty Start Date End Date Raleigh Barber MD [address] [facility] [place] [address] PCP - General 08/22/22
--- OUTSIDE RECORDS SUMMARY | 2024-10-24 16:37 | XMS_ITS | Referral Summary ---
Author Organization [facility] Address [address] [place] [address] Care Team Providers Care Contracts Representative Name Role Phone Narendra Holden MD Primary Care Provider [phone] Allergies Active Allergy Reactions Criticality Noted Date [...] on file Legal Sex Female 5:48 PM RECRUIT INSTRUCTOR Gender Identity Not on file Sexual Orientation Not on file Last Filed Vital Signs Vital Sign Reading Time Taken Comments Blood Pressure 124/61 09/15/2021 12:59 AM RECRUIT INSTRUCTOR Pulse 72 09/15/2021 12:59 AM RECRUIT INSTRUCTOR Temperature 36.7 C (98.1 F) 09/14/2021 8:58 PM RECRUIT INSTRUCTOR Respiratory Rate 20 09/15/2021 12:59 AM RECRUIT INSTRUCTOR Oxygen Saturation 99% 09/14/2021 8:58 PM RECRUIT INSTRUCTOR Inhaled Oxygen Concentration - - Weight 92.7 kg (204 lb 5.9 oz) 09/14/2021 8:58 P M RECRUIT INSTRUCTOR Height 162.6 cm (5' 4 ) 09/14/2021 8:58 PM RECRUIT INSTRUCTOR Body Mass Index 35.08 09/14/2021 8:58 PM RECRUIT INSTRUCTOR Plan of Treatment Not on file Insurance [place] [id number] Care Teams Contracts Representative Relationship Specialty Start Date End Date Narendra Holden MD PCP - General 11/12/18
--- OUTSIDE RECORDS SUMMARY | 2024-10-24 16:37 | XMS_ITS | Clinical Summary ---
Author Organization [facility] Address [address] [place] [address] Care Team Providers Care Borematic Machine Operator Name Role Phone Raleigh Barber MD Primary Care Provider [phone] Source Comments [facility] [employer],non-owned Affiliates and Associated Physician Practices is amultiple site organization consisting of ambulatory clinics and hospital sitesin [place], [place], [place] and [place]. This disclosure is being madepursuant to the Care Everywhere program and may not contain all information available regarding this patient. Last updated 18.[facility] Allergies Active Allergy Reactions Criticality Noted Date Comments Cefaclor Rash Medium 09/14/2021 Cephalexin Rash Medium 09/14/2021 Medications * Be aware that medications may not be up to date on this document. Alwaysverify current medications with the patient. Medication Sig Dispensed Refills Start Date End Date Status vitamin D, ergocalciferol, (Drisdol) 1.25 MG (08415 UT) capsule 12/28/2023 Active fluticasone propionate (Flonase) [...] 03/08/2024 6:24 AM CDT Plan of Treatment Health Maintenance Due Date Last Done Comments PAP SMEAR 1991 HIV SCREENING 2006 HPV VACCINE (3 - 3-dose series) 08/02/2007 04/03/2007, 01/30/2007 HEPATITIS C SCREENING 06/14/2009 DTAP/TDAP/TD VACCINES (4 - Tdap) 2010 05/11/1992, 1991, 1991 HEPATITIS B VACCINE (2 of 3 - 19+ 3-dose series) 08/09/2015 07/12/2015 COVID-19 VACCINE (1 - 2023-2 5 season) 2024 INFLUENZA VACCINE (#1) 2024 5, 10/20/2014, 08/01/2014 DEPRESSION SCREENING 09/18/2024 ZOSTER VACCINE (1 of 2) 2041 HIB VACCINE Aged Out No longer eligi ble based on patient's age to complete this topic MENINGOCOCCAL (Group B) VACCINE Aged Out No longer eligible b ased on patient's age to complete this topic MENINGOCOCCAL VACCINE Aged Out No cyn cele eligible based on patient's age to complete this topic PNEUMOCOCCAL VACCINE Aged Out No long er eligible based on patient's age to complete this topic Care Teams Borematic Machine Operator Relationship Specialty Start Date End Date Raleigh Barber MD [address] [place] [id number] PCP - General 08/22/22
--- OUTSIDE RECORDS SUMMARY | 2024-10-24 16:37 | XMS_ITS | CONTINUITY OF CARE DOCUMENT ---
Author Name olisuha olisuha Address Unknown Organization [facility] Address [address] [place] [address] Phone [phone] Care Team Providers Care Design Tech Name Role Phone Gen Boogie MD Unavailable BAY BASILIO MD Unavailable [phone] BAY BASILIO MD Unavailable [phone] PROBLEMS Condition Status Date Provider Notes Cardiology examination active Gen spencer MD Chest pain active Gen Boogie MD Palpitations active Gen Boogie MD Dyspnea on exertion active Gen Hernandez Daytime hypersomnia, no JARVIS on IHS 01/2023 active 01/16 Gen Boogie MD ENCOUNTERS Date Type Provider Location Encounter Diag nosis - In-person encounter Office Visit Gen Boogie MD [facility] Daytime hypersomnia, no JARVIS on IHS 01/2023 - In-person encounter Office Visit Gen Boogie MD [facility] Daytime hypersomnia, no JARVIS on IHS 01/2023 - In-person encounter Office Visit Gen Boogie MD [facility] Cardiology examinationChest painPalpitationsDyspnea on exertion VITAL SIGNS Date Observation Value Provider Body Mass Index (Ratio) 35.94 kg/m2 Lisa Boogie MD blood pressure, diastolic 71 mm[Hg] [facility] wilfrid Miguel blood pressure, systolic 133 mm[Hg] Lucas monteiro Lamont oxygen saturation, oximetry 98 % Sonia Lamont pulse rate 68 /min Sonia Lamont respiratory rate E&M 18 /min Sonia David lyons weight E&M 216 [lb_av] Sonia Lamont height E&M 65 [in_i] Sonia Lamont Body Mass Index (Ratio) 35.77 kg/m2 Lisa Boogie MD blood pressure, diastolic 73 mm[Hg] An gómez Olivier blood pressure, systolic 127 mm[Hg] Shanon Olivier oxygen saturation, oximetry 97 % Evita Olivier pulse rate 74 /min Evita Olivier blood pressure, cuff size large An gómez Olivier weight E&M 215 [lb_av] Evita Olivier height E&M 65 [in_i] Evita Olivier weight E&M 214 [lb_av] Sharon Wooten Body Mass Index (Ratio) 35.61 kg/m2 Lisa Boogie MD blood pressure, diastolic 69 mm[Hg] Kina nkLogguillermina blood pressure, systolic 119 mm[Hg] Neeta kLogguillermina blood pressure, cuff size regular bennett Mendez blood pressure, diastolic 69 mm[Hg] bennett Mendez blood pressure, systolic 119 mm[Hg] She erick Mendez respiratory rate E&M 18 /min Paty Mendez oxygen saturation, oximetry 98 % Paty Mendez pulse rate 66 /min Paty Mendez weight E&M 214 [lb_av] Paty Mendez height E&M 65 [in_i] Paty Mendez ALLERGIES Allergy Name Onset Date Reaction Criticality Status CECLOR High Criticality active KEFLEX High Criticality active HISTORY OF MEDICATION USE Medication Status Instructions Dates Provider Indications Com ments naproxen 500 mg tablet active Gen Boogie MD SOCIAL HISTORY Date Observation Value Provider social history E&M S moking History: Mauro oneal has never smoked. Gen Boogie MD social history reviewed E&M revi ewed - no changes required Gen Boogie MD smoking status Never smoker Sonia Lamont social history E&M S moking History: Mauro oneal has never smoked. Gne Boogie MD social history reviewed E&M revi ewed - no changes required Gen Boogie MD smoking status Never smoker Evita Soy number of grandchildren Gen Boogie MD social history E&M S moking History: Mauro oneal has never smoked. Gen Boogie MD social history reviewed E&M revi ewed - no changes required Gen Boogie MD smoking status Never smoker Paty Mendez INSURANCE PROVIDERS Payer name Policy type / Coverage type [place] [employer] party [place] MEDICAID (2) Medicaid [id number] ADVANCE DIRECTIVES Name Date DISCUSSED - NO DECISION MADE TREATMENT PLAN Date Name Performer [id number],SGen ra, [place] [id number],BGen ra, [place] [id number],BGen ra, [place] [id number],BGen ra, MD [id number],[place]Gen ra, [place] [id number],SGen ra[place] [id number],BGen ra, [place] [id number],BGen ra, [place] [id number],WGen ra, MD [id number],W, Gen Alegria ra, [place] [id number],W, Gen Alegria ra, MD Cardiology Gen Hernandez Cardiology Gen Hernandez Cardiology Gen Hernandez Cardiology Gen Hernandez Cardiology Gen Hernandez Cardiology Gen Hernandez Cardiology Gen Hernandez Cardiology Gen Hernandez Cardiology Gen Hernandez Cardiology Gen Hernandez Cardiology Gen Hernandez Date Name Sleep Study Home Stress Routine Complete Echo HISTORY OF PROCEDURES Procedure Date Procedure Name Provider Procedure Notes S tatus EKG Gen Boogie MD complet ed
[2024-10-24 17:44] LABS: HIV 1/2 Ab P24 Ag Result Negative (Negative)
[2024-10-24 17:51] LABS: Hepatitis C Virus Antibody Negative (Negative)
[2024-10-25 07:21] LABS: Rapid Plasma Reagin Non-Reactive (NonReactive)
[2024-10-26 03:08] LABS: Hepatitis Be Antibody NON-REACTIVE (NON-REACTIVE)
== END 2024-10-24 16:36 | disposition home or self-care (01) ==
LOC: ANHLAB 16:36
PROVIDERS: Visit Provider Nurse Practitioner Obstetrics & Gynecology
DX: Z11.3 Encounter for screening for infections with a predominantly sexual mode of transmission (principal); Z11.4 Encounter for screening for human immunodeficiency virus [HIV]
CPT/HCPCS: 36415; 86592; 86703; 86707; 86803; G0432

== ENCOUNTER 2024-11-19 09:44 | Outpatient (CLI) | payer OTHER, SELFPAY ==
[2024-11-19 10:07] LABS: Add Urine Microscopic? YES; Appearance Urine Cloudy (Clear); Bacteria Urine Rare /hpf; Bilirubin Urine Negative (Negative); Blood Urine 2+ (Negative); Color Urine Yellow (Yellow); Glucose Urine UA Negative (Negative); Ketones Urine Negative (Negative); Leukocyte Esterase Ur 3+ LEU/UL (Negative); Nitrate Urine Negative (Negative); Non Pathogenic Casts 0-2; Protein Urine Negative (Negative); Specific Grav Ur 1.008 (1.001-1.035); Squamous Epithelial Cell Urine Moderate /hpf (Few); Urobilinogen Urine 0.2 mg/dL (<2.0); WBC Urine 21-50 /hpf (0-3); pH Urine 6.5 (5.0-9.0)
[2024-11-19 10:36] LABS: Influenza A QL RT-PCR Negative (Negative); Influenza B QL RT-PCR Negative (Negative); RSV RNA, RT-PCR Negative (Negative); SARS-CoV-2 RNA PCR Negative (Negative)
== END 2024-11-19 09:45 | disposition home or self-care (01) ==
LOC: ANHLAB 09:46
PROVIDERS: Visit Provider Emergency Medicine
DX: J06.9 Acute upper respiratory infection, unspecified (principal); H66.92 Otitis media, unspecified, left ear
CPT/HCPCS: 81001; 87637

== ENCOUNTER 2025-01-08 14:35 | Outpatient (CLI) | payer OTHER, SELFPAY ==
--- OUTSIDE RECORDS SUMMARY | 2025-01-08 16:38 | XMS_ITS | Referral Summary ---
Author Organization [facility] Address [address] [place] [address] Care Team Providers Care Gusset Stitcher Name Role Phone Narendra Holden MD Primary Care Provider [phone] Allergies Active Allergy Reactions Criticality Noted Date Comments Cefaclor Rash Medium 09/14/2021 Cephalexin Rash Medium 09/14/2021 Immunizations Immunization Administration Dates Next Due DTP 05/11/1992,1991,1991 HPV, [...] on file Legal Sex Female 5:48 PM SUPPORT SERVICES COORDINATOR Gender Identity Not on file Sexual Orientation Not on file Last Filed Vital Signs Vital Sign Reading Time Taken Comments Blood Pressure 124/61 09/15/2021 12:59 AM SUPPORT SERVICES COORDINATOR Pulse 72 09/15/2021 12:59 AM SUPPORT SERVICES COORDINATOR Temperature 36.7 C (98.1 F) 09/14/2021 8:58 PM SUPPORT SERVICES COORDINATOR Respiratory Rate 20 09/15/2021 12:59 AM SUPPORT SERVICES COORDINATOR Oxygen Saturation 99% 09/14/2021 8:58 PM SUPPORT SERVICES COORDINATOR Inhaled Oxygen Concentration - - Weight 92.7 kg (204 lb 5.9 oz) 09/14/2021 8:58 P M SUPPORT SERVICES COORDINATOR Height 162.6 cm (5' 4 ) 09/14/2021 8:58 PM SUPPORT SERVICES COORDINATOR Body Mass Index 35.08 09/14/2021 8:58 PM SUPPORT SERVICES COORDINATOR Plan of Treatment Not on file Insurance [facility] [place] [id number] Care Teams Gusset Stitcher Relationship Specialty Start Date End Date Narendra Holden MD PCP - General 11/12/18
--- OUTSIDE RECORDS SUMMARY | 2025-01-08 16:38 | XMS_ITS | Clinical Summary ---
Author Organization [facility] Address [address] [place] [address] Care Team Providers Care Supervisor Electronics Inspection Name Role Phone Raleigh Barber MD Primary Care Provider [phone] Source Comments [facility],non-owned Affiliates and Associated Physician Practices is amultiple site organization consisting of ambulatory clinics and hospital sitesin [place], [place], [place] and [place]. This disclosure is being madepursuant to the Care Everywhere program and may not contain all information available regarding this patient. Last updated 18.[facility] Allergies Active Allergy Reactions Criticality Noted Date Comments Cefaclor Rash Medium 09/14/2021 Cephalexin Rash Medium 09/14/2021 Medications * Be aware that medications may not be up to date on this document. Alwaysverify current medications with the patient. vitamin D, ergocalciferol, (Drisdol) 1.25 MG (50002 UT) capsule 4 Active fluticasone propionate (Flonase) 50 MCG/ACT nasal spray 3 Active cetirizine (ZyrTEC) 10 MG tablet 3 Active terconazole (Terazol 3) 0.8 % vaginal cream 4 Active gabapentin (Neurontin) 100 MG capsuleIndicati ons:Episodic cluster headache, not intractable,Jonathan chet without aura and without status migrainosus, not intractable,Ten chucho headache,Reboun d headache,Parest hesia Take 1 (one) capsule by mouth at bedtime 30 capsule 5 4 Active Additional Information Patient not taking.Reported on 02/29/2024 tobramycin-dexA METHasone (Tobradex) 0.3-0.1 % ophthalmic suspension Instill 1 (one) drop into left eye 3 times daily Until bottle runs out 4 Active Additional Information Patient not taking.Reported on 12/24/2024 ketorolac (Toradol) 10 MG tablet Take 1 (one) tablet by mouth every 6 hours as needed for Pain 16 tablet 4 Active Additional Information Patient not taking.Reported on 12/24/2024 Active Problems Problem Noted Date Diagnosed Date [...] 21-Neg 20 weeks gestation of 10/07/2021 08/24/2022 Encounters Date Type Department Care Team Description 12/24/2024 9:00 AM CDT Office Visit [facility] - General Surgery [address] [place] [address] Silvina Chavira MD Hemorrhoids, unspecified hemorrhoid type (Primary Dx) 12/24/2024 Travel from Last 3 Months Immunizations Immunization Administration Dates Next Due INFLUENZA VACCINE, TRIV. (AF LURIA, FLUZONE TRIVALENT; 6MO+) (IIV3) 07/12/2015,08/01/2014 DTP 05/11/1992,1991,1991 HEP B VACCINE, ADULT 3 DOSE 07/12/2015 Human Papilloma Virus Quadrivalent Vaccine 04/03,01/30/2007 MMR 11/05/1992 POLIO OPV 05/11/1992,01/27/1992 Social History Tobacco Use Types Packs/Day Years Used Date Smoking Tobacco: Never Smokeless Tobacco: Never Tobacco Cessation:Counseling Given: No Alcohol Use Standard Drinks/Week Comments Yes 0 (1 standard drink = 0.6 oz pur e alcohol) social Comments No Sex and Gender Information Value Date Recorded Sex Assigned at Not on file Legal Sex Female 5:46 AM DEVELOPMENT EXPERT Gender Identity Not on file Sexual Orientation Not on file Last Filed Vital Signs Vital Sign Reading Time Taken Comments Blood Pressure 112/75 12/24/2024 8:40 AM CDT Pulse 60 12/24/2024 8:40 AM CDT Temperature 36.5 C (97.7 F) 12/24/2024 8:40 AM CDT Respiratory Rate 15 03/08/2024 8:50 AM CDT Oxygen Saturation 99% 12/24/2024 8:40 AM CDT Inhaled Oxygen Concentration - - Weight 94.8 kg (209 lb) 12/24/2024 8:40 AM CDT Height 165.1 cm (5' 5 ) 12/24/2024 8:40 AM CDT Body Mass Index 34.78 12/24/2024 8:40 AM CDT Plan of Treatment Health Maintenance Due Date Last Done Comments PAP SMEAR 1991 HIV SCREENING 2006 HPV VACCINE (3 - 3-dose series) 08/02/2007 04/03/2007, 01/30/2007 HEPATITIS C SCREENING 06/14/2009 DTAP/TDAP/TD VACCINES (4 - Tdap) 2010 05/11/1992, 1991, 1991 HEPATITIS B VACCINE (2 of 3 - 19+ 3-dose series) 08/09/2015 07/12/2015 COVID-19 VACCINE (1 - 2023-2 5 season) 2024 DEPRESSION SCREENING 09/18/2024 INFLUENZA VACCINE (Season Ended) 2025 07/12/2015, 10/20/2014, 08/01/2014 ZOSTER VACCINE (1 of 2) 2041 HIB VACCINE Aged Out No longer eligi ble based on patient's age to complete this topic MENINGOCOCCAL (Group B) VACCINE SHARED DECISION-MAKING Aged Out No longer eligible based on patient's age to complete this topic MENINGOCOCCAL GROUPS A/C/Y/W VACCINE Aged Out No longer eligible b ased on patient's age to complete this topic PNEUMOCOCCAL VACCINE Aged Out No long er eligible based on patient's age to complete this topic Procedures Procedure Name Priority Date/Time Associated Diagnosis Comments ID DIAGNOSTIC ANOSCOPY Routine 12/24/2024 9:41 AM CDT Hemorrhoids, unspecified hemorrhoid type from Last 3 Months Results * ID DIAGNOSTIC ANOSCOPY (12/24/2024 9:41 AM CDT) Narrative Silvina Chavira MD - 12/24/2024 9:41 AM CDT Silvina Chavira MD 12/25/2024 8:02 AM Preop Dx- symptomatic hemorrhoids Postop Dx- bulky RA EH, chronic IH thrombosis LL Procedure- anoscopy Inspection- bulky EH RA, no prolapsed component appreciated, non patulous, skin tags on left VIJI- good tone, no masses, no blood Pt in prone position, anoscope advanced with lubrication after VIJI, no masses, no purulent drainage no blood and no pain on exam, LL IH with small chronic thrombosis, injected RP and RA IH columns, no active bleeding. Silvina Chavira MD PROCEDURE/MINOR SURGICAL O RDERABLES Final Result from Last 3 Months Insurance MEDICAID - OUT OF STATE [facility] Care Teams Supervisor Electronics Inspection Relationship Specialty Start Date End Date Raleigh Barber MD [address] [place] [id number] PCP - General 08/22/22
--- OUTSIDE RECORDS SUMMARY | 2025-01-08 16:38 | XMS_ITS | Clinical Summary ---
Author Organization [facility] Address [address] [place] [address] Care Team Providers Care Jail Officer Name Role Phone Narendra Holden MD Primary Care Provider [phone] Allergies Active Allergy Reactions Criticality Noted Date [...] on file Legal Sex Female 5:48 PM ASSIGNMENT OFFICER Gender Identity Not on file Sexual Orientation Not on file Obstetrics History Para Term AB IAB SAB Ectopic Multiple Livin g Live Births 1 Date Outcome GA Total Labor Labor/2nd/3rd Weight Sex Type Anes PTL Clarisa A1 A5 Name Clin Last Filed Vital Signs Vital Sign Reading Time Taken Comments Blood Pressure 124/61 09/15/2021 12:59 AM ASSIGNMENT OFFICER Pulse 72 09/15/2021 12:59 AM ASSIGNMENT OFFICER Temperature 36.7 C (98.1 F) 09/14/2021 8:58 PM ASSIGNMENT OFFICER Respiratory Rate 20 09/15/2021 12:59 AM ASSIGNMENT OFFICER Oxygen Saturation 99% 09/14/2021 8:58 PM ASSIGNMENT OFFICER Inhaled Oxygen Concentration - - Weight 92.7 kg (204 lb 5.9 oz) 09/14/2021 8:58 P M ASSIGNMENT OFFICER Height 162.6 cm (5' 4 ) 09/14/2021 8:58 PM ASSIGNMENT OFFICER Body Mass Index 35.08 09/14/2021 8:58 PM ASSIGNMENT OFFICER Plan of Treatment Health Maintenance Due Date Last Done Comments Cervical Cancer Screening 1991 Depression Screening 1991 Hepatitis C Screening 1991 Varicella Vaccines (1 of 2 - 13+ 2-dose series) 2004 HPV Vaccines (3 - 3-dose series) 08/02/2007 04/03/2007, 01/30/2007 Regular Well Visit/Exam 18-64 2009 Covid-19 Vaccine ( season) 2024 07/13/2021, 06/12/2021 Influenza Vaccine (Season Ended) 2025 07/12/2015, 10/20/2014, 08/01/2014 DTaP/Tdap/Td Vaccine (5 - Td or Tdap) 12/04/2031 12/03/2021, 05/11/1992, 1991, Additional history exists Hepatitis B Screening Completed 07/12/2015 Pneumococcal vaccine <65 Aged Out No longer eligible based on patient's age to complete this topic Insurance [facility] Care Teams Jail Officer Relationship Specialty Start Date End Date Narendra Holden MD PCP - General 11/12/18
--- OUTSIDE RECORDS SUMMARY | 2025-01-08 16:38 | XMS_ITS | CONTINUITY OF CARE DOCUMENT ---
Author Name olisuha olisuha Address Unknown Organization [facility] Address [address] [place] [address] Phone [phone] Care Team Providers Care Screen Printer Helper Name Role Phone Gen Boogie MD Unavailable BAY BASILIO MD Unavailable [phone] BAY BASILIO MD Unavailable [phone] PROBLEMS Condition Status Date Provider Notes Cardiology examination active Gen spencer MD Chest pain active Gen Boogie MD Palpitations active Gen Boogie MD Dyspnea on exertion active Gen Hernandez Daytime hypersomnia, no JARVIS on IHS 01/2023 active 01/16 Gen Boogie MD ENCOUNTERS Date Type Provider Location Encounter Diag nosis - In-person encounter Office Visit Gen Boogie MD [facility] Daytime hypersomnia, no JARVIS on IHS 01/2023 - In-person encounter Office Visit Gen Boogie MD [facility] Daytime hypersomnia, no JARVIS on IHS 01/2023 - In-person encounter Office Visit Gen Boogie MD [facility] Cardiology examinationChest painPalpitationsDyspnea on exertion VITAL SIGNS Date Observation Value Provider Body Mass Index (Ratio) 35.94 kg/m2 Lisa oBogie MD blood pressure, diastolic 71 mm[Hg] St [...] Payer name Policy type / Coverage type [employer] [place] MEDICAID (2) Medicaid [id number] ADVANCE DIRECTIVES Name Date DISCUSSED - NO DECISION MADE TREATMENT PLAN Date Name Performer [id number],SGen ra, [place] [id number],BGen ra, [place] [id number],BGen ra, MD [id number],BGen ra, MD [id number],WGen ra, MD [id number],SGen ra, MD [id number],BGen ra, MD [id number],BGen ra, [place] [id number],WGen ra, MD [id number],W, Gen Alegria ra, MD [id number],W, Gen Alegria ra, MD Cardiology Gen Hernandez Cardiology Gen Hernandez Cardiology Gen Hernandez Cardiology Gne Hernandez Cardiology Gen Hernandez Cardiology Gen Hernandez Cardiology Gen Hernandez Cardiology Gen Hernandez Cardiology Gen Hernandez Cardiology Gen Hernandez Cardiology Gen Hernandez Date Name Sleep Study Home Stress Routine Complete Echo HISTORY OF PROCEDURES Procedure Date Procedure Name Provider Procedure Notes S tatus EKG Gen Boogie MD complet ed
[2025-01-08 17:16] LABS: Syphilis IgG/IgM Antibody Negative (Negative)
[2025-01-08 17:28] LABS: HIV 1/2 Ab P24 Ag Result Negative (Negative)
[2025-01-08 17:39] LABS: Hepatitis C Virus Antibody Negative (Negative)
[2025-01-09 13:50] LABS: Beta HCG Quantitative < 2.39 mIU/ML
[2025-01-11 04:44] LABS: Hepatitis Be Antibody NON-REACTIVE (NON-REACTIVE)
== END 2025-01-08 14:36 | disposition home or self-care (01) ==
LOC: ANHLAB 14:35
PROVIDERS: Visit Provider Nurse Practitioner Obstetrics & Gynecology
DX: Z11.3 Encounter for screening for infections with a predominantly sexual mode of transmission (principal)
CPT/HCPCS: 36415; 84702; 86593; 86703; 86707; 86803; G0432

== ENCOUNTER 2025-01-09 15:27 | Outpatient (CLI) | payer OTHER, SELFPAY ==
--- NOTE | ~2025-01-09 | US_ITS ---
EXAM: PELVIC ULTRASOUND HISTORY: R10.2 - Pelvic and perineal pain COMPARISON: None FINDINGS: UTERUS: 8.0 x 3.8 x 3.4 cm. The uterus is anteverted and anteflexed. The endometrial complex measures 4 mm. RIGHT OVARY: The right ovary is unremarkable in echogenicity and size measuring 1.6 x 2.0 x 2.1 cm. Dopplerable flow is identified. LEFT OVARY: The left ovary measures 3.8 x 1.4 x 1.5 cm Dopplerable flow is identified. Within the left ovary is a well-circumscribed anechoic, avascular focus consistent with a simple cyst measuring 2.8 x 2.1 x 1.2 cm for which no further follow-up is needed A small amount of free fluid is identified within the posterior cul-de-sac, likely physiologic. IMPRESSION: Simple cyst within the left ovary which does not meet size criteria for follow-up. Otherwise, unremarkable sonographic evaluation of the pelvis, as detailed above. Reviewed, dictated and finalized at location A. IMPRESSION: Simple cyst within the left ovary which does not meet size criteria for follow- up. Otherwise, unremarkable sonographic evaluation of the pelvis, as detailed above .
== END 2025-01-09 15:28 | disposition home or self-care (01) ==
LOC: GOSHIMG 15:27
PROVIDERS: PCP Nurse Practitioner Family; Visit Provider Nurse Practitioner Family
DX: R10.2 Pelvic and perineal pain (principal); N83.202 Unspecified ovarian cyst, left side
CPT/HCPCS: 76830; 76856

== ENCOUNTER 2025-06-26 15:58 | Outpatient (CLI) | payer OTHER, SELFPAY ==
[2025-06-26 16:40] LABS: Hematocrit 37.7 % (37.0-47.0); Hemoglobin 13.0 g/dL (12.0-15.0); Mean Corpuscular HGB Conc 34.5 g/dl (32-36); Mean Corpuscular Hemoglobin 33.0 pg (26-34); Mean Corpuscular Volume 95.7 fl (80-100); Platelet Count Result 280 k/mm3 (150-375); Red Blood Count 3.94 M/mm3 (4.2-5.4); White Blood Count 10.9 K/mm3 (4.5-10.0)
[2025-06-26 17:22] LABS: Thyroid Stimulating Hormone 2.760 uIU/mL (0.465-4.680)
[2025-06-26 17:31] LABS: Add Urine Microscopic? YES; Appearance Urine Clear (Clear); Glucose Urine UA Negative (Negative); Leukocyte Esterase Ur Trace LEU/UL (Negative); Need Manual Microscopic Reviewed; Nitrate Urine Negative (Negative); Non Pathogenic Casts 0-2; Specific Grav Ur 1.028 (1.001-1.035)
[2025-06-26 17:33] LABS: HIV 1/2 Ab P24 Ag Result Negative (Negative)
[2025-06-26 17:35] LABS: Hepatitis B Surface Antigen Negative (Negative)
[2025-06-26 17:48] LABS: Trichomonas Vag PCR NOT DETECTED (NOT DETECTE)
[2025-06-28 07:09] LABS: Varicella-Zoster Ab, IgG Reactive (Non Reactive)
== END 2025-06-26 15:59 | disposition home or self-care (01) ==
LOC: ANHLAB 16:03
PROVIDERS: Visit Provider Nurse Practitioner Family
DX: Z11.3 Encounter for screening for infections with a predominantly sexual mode of transmission (principal); N91.2 Amenorrhea, unspecified
CPT/HCPCS: 36415; 81001; 83020; 84443; 85027; 85660; 86703; 86762; 86787; 86803; 87086; 87340; 87491; 87591; 87661; G0432

== ENCOUNTER 2025-07-03 15:12 | Outpatient (CLI) | payer OTHER, SELFPAY ==
--- OUTSIDE RECORDS SUMMARY | 2025-07-03 17:18 | XMS_ITS | Clinical Summary ---
Author Organization [facility] Address [address] [place] [address] Care Team Providers Care Cost Recorder Name Role Phone Raleigh Barber MD Primary Care Provider [phone] Source Comments [facility],non-owned Affiliates and Associated Physician Practices is amultiple site organization consisting of ambulatory clinics and hospital sitesin [place], [place], [place] and [place]. This disclosure is being madepursuant to the Care Everywhere program and may not contain all information available regarding this patient. Last updated 18.[facility] Allergies Active Allergy Reactions Criticality Noted Date Comments Cefaclor Rash Medium 09/14/2021 Cephalexin Rash Medium 09/14/2021 Medications * Be aware that medications may not be up to date on this document. Alwaysverify current medications with the patient. vitamin D, ergocalciferol, (Drisdol) 1.25 MG (92329 UT) capsule 4 Active fluticasone propionate (Flonase) 50 MCG/ACT nasal spray 3 Active cetirizine (ZyrTEC) 10 MG tablet 3 Active terconazole (Terazol 3) 0.8 % vaginal cream 4 Active gabapentin (Neurontin) 100 MG capsuleIndicati ons:Episodic cluster headache, not intractable,Jonahtan chet without aura and without status migrainosus, [...] 20 weeks gestation of 10/07/2021 08/24/2022 Immunizations Immunization Administration Dates Next Due INFLUENZA [...] on file Legal Sex Female 5:46 AM MARINE FUEL DOCK ATTENDANT Gender Identity Not on file Sexual Orientation [...] 8:40 AM CDT Height 165.1 cm (5' 5) 12/24/2024 8:40 AM CDT Body Mass Index 34.78 12/24/2024 8:40 AM CDT Plan of Treatment Health Maintenance Due Date Last Done Comments HIV SCREENING 2006 HPV VACCINE (3 - 3-dose series) 08/02/2007 04/03/2007, 01/30/2007 HEPATITIS C SCREENING 06/14/2009 DTAP/TDAP/TD VACCINES (4 - Tdap) 2010 05/11/1992, 1991, 1991 PAP SMEAR 2012 HEPATITIS B VACCINE (2 of 3 - 19+ 3-dose series) 08/09/2015 07/12/2015 DEPRESSION SCREENING 09/18/2024 COVID-19 VACCINE (1 - 2023-2 5 season) 2025 INFLUENZA VACCINE (#1) 2025 5, 10/20/2014, 08/01/2014 ZOSTER VACCINE (1 of 2) [...] patient's age to complete this topic Insurance MEDICAID - OUT OF STATE [facility] Care Teams Cost Recorder Relationship Specialty Start Date End Date Raleigh Barber MD [address] [facility] [address] [place] [address] PCP - General 08/22/22
--- OUTSIDE RECORDS SUMMARY | 2025-07-03 17:18 | XMS_ITS | Clinical Summary ---
Author Organization [facility] Address [address] [place] [address] Care Team Providers Care Airport Utility Worker Name Role Phone Narendra Holden MD Primary Care Provider [phone] Allergies Active Allergy Reactions Criticality Noted Date Comments Cefaclor Rash Medium 09/14/2021 Cephalexin Rash Medium 09/14/2021 Encounters Date Type Department Care Team Description 05/28/2025 3:08 PM CDT - 05/28/2025 11:59 PM CDT Hospital Encounter [facility] Ultrasound [facility] [place], [place] [address] Encounter for supervision of normal , antepartum, unspecified Discharge Disposition: Discharge to home or self care from Last 3 Months Immunizations Immunization Administration Dates Next Due DTP [...] on file Legal 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 Gender Identity Not on file Sexual Orientation Not on file Obstetrics History Para Term AB IAB SAB Ectopic Multiple Livin g Live Births 1 Date Outcome GA Total Labor Labor/2nd/3rd Weight Sex Type Anes PTL Clarisa A1 A5 Name Clin Last Filed Vital Signs Vital Sign Reading Time Taken Comments Blood Pressure 124/61 09/15/2021 12:59 AM AUTOMOBILE ASSEMBLER Pulse 72 09/15/2021 12:59 AM AUTOMOBILE ASSEMBLER Temperature 36.7 C (98.1 F) 09/14/2021 8:58 PM AUTOMOBILE ASSEMBLER Respiratory Rate 20 09/15/2021 12:59 AM AUTOMOBILE ASSEMBLER Oxygen Saturation 99% 09/14/2021 8:58 PM AUTOMOBILE ASSEMBLER Inhaled Oxygen Concentration - - Weight 92.7 kg (204 lb 5.9 oz) 09/14/2021 8:58 P M AUTOMOBILE ASSEMBLER Height 162.6 cm (5' 4) 09/14/2021 8:58 PM AUTOMOBILE ASSEMBLER Body Mass Index 35.08 09/14/2021 8:58 PM AUTOMOBILE ASSEMBLER Plan of Treatment Health Maintenance Due Date Last Done Comments Cervical Cancer Screening 1991 Depression Screening 1991 Hepatitis C Screening 1991 Varicella Vaccines (1 of 2 - 13+ 2-dose series) 2004 HPV Vaccines (3 - 3-dose series) 08/02/2007 04/03/2007, 01/30/2007 Regular Well Visit/Exam 18-64 2009 Covid-19 Vaccine ( season) 2025 07/13/2021, 06/12/2021 Influenza Vaccine (#1) 2025 , 07/12/2015, 10/20/2014, Additional history exists DTaP/Tdap/Td Vaccine (5 - Td or Tdap) 12/04/2031 12/03/2021, 05/11/1992, 1991, Additional history exists Hepatitis B Screening Completed 07/12/2015 Pneumococcal vaccine <65 Aged Out No longer eligible based on patient's age to complete this topic Procedures Procedure Name Priority Date/Time Associated Diagnosis Comments US OB UNDER 14 WEEKS W ENDOVAGINAL Schedule Routine, Read Routine (OP Routine) 05/28/2025 4:13 PM CDT Encounter for supervision of normal , antepartum, unspecified from Last 3 Months Results * US OB Under 14 Weeks W Endovaginal (05/28/2025 4:13 PM CDT) Anatomical Region Laterality Modality Abdomen N/A Ultrasound 05/30/2025 12:4 3 PM CDT Narrative 05/30/2025 12:46 PM CDT EXAM DESCRIPTION: US OB UNDER 14 WEEKS W ENDOVAGINAL REASON FOR STUDY: Z34.90 for dating and viability. Beta-hCG: TECHNIQUE: Transabdominal and transvaginal images acquired of the pelvis. COMPARISON: None. FINDINGS: Clinical age is 7 weeks 4 days with an JESICA 01/10/2026. The uterus is anteverted measuring 10.8 x 6.7 x 6.2 cm. There is a single uterine with a pole and yolk sac. The mean crown-rump length is 1.79 cm corresponding to an estimated age 8 weeks 2 days with an JESICA 01/05/2026. No evidence of subchorionic hemorrhage. Yolk sac 0.3 cm. heart rate is 173 beats per minute. Right ovary 3.5 x 2.0 x 2.2 cm. There is a cystic structure right ovary likely corpus luteum cyst measuring 1.8 x 2.3 x 1.5 cm. Preserved color flow and waveforms right ovary. Left ovary 2.4 x 2.7 x 1.2 cm. Preserved color flow and waveforms left ovary. No adnexal mass. No free fluid in the pelvis. IMPRESSION: 1. Single uterine estimated at 8 weeks 2 days with an JESICA 01/05/2026. 2. heart rate 173 beats per minute. 3. No evidence of complication. THIS IS AN ELECTRONICALLY VERIFIED FINAL REPORT 05/30/2025 12:46 PM - Electronically signed by Wayne Bush M.D. CH: MIKEY Report ID: [id number] Reading Location: [id number] Procedure Note Wayne Bush MD - 05/30/2025 EXAM DESCRIPTION: US OB UNDER 14 WEEKS W ENDOVAGINAL REASON FOR STUDY: Z34.90 for dating and viability. Beta-hCG: TECHNIQUE: Transabdominal and transvaginal images acquired of thepelvis. COMPARISON: None. FINDINGS: Clinical age is 7 weeks 4 days with an JESICA 01/10/2026. The uterus is anteverted measuring 10.8 x 6.7 x 6.2 cm. There is a single uterine with a pole and yolk sac. The mean crown-rump length is 1.79 cm corresponding to an estimated age 8 weeks 2 days with an JESICA 01/05/2026. No evidence of subchorionic hemorrhage. Yolk sac 0.3 cm. heart rate is 173 beats per minute. Right ovary 3.5 x 2.0 x 2.2 cm. There is a cystic structure right ovary likely corpus luteum cyst measuring 1.8 x 2.3 x 1.5 cm. Preserved colorflow and waveforms right ovary. Left ovary 2.4 x 2.7 x 1.2 cm. Preserved color flow and waveforms leftovary. No adnexal mass. No free fluid in the pelvis. IMPRESSION: 1. Single uterine estimated at 8 weeks 2 days with an JESICA 01/05/2026. 2. heart rate 173 beats per minute. 3. No evidence of complication. THIS IS AN ELECTRONICALLY VERIFIED FINAL REPORT 05/30/2025 12:46 PM - Electronically signed by Wayne Bush M.D. CH: MIKEY Report ID: [id number] Reading Location: [place] [id number] [place] Anabelle Landaverde CLOTH COVERER IMG OB US PROCEDURES Fi nal Result from Last 3 Months Insurance [facility] [place] Care Teams Airport Utility Worker Relationship Specialty Start Date End Date Narendra Holden MD PCP - General 11/12/18
== END 2025-07-03 15:13 | disposition home or self-care (01) ==
PROVIDERS: Visit Provider Obstetrics & Gynecology
DX: Z34.90 Encounter for supervision of normal pregnancy, unspecified, unspecified trimester (principal); Z3A.00 Weeks of gestation of pregnancy not specified
CPT/HCPCS: 36415; 81329

== ENCOUNTER 2025-08-05 15:34 | Outpatient (CLI) | payer OTHER, SELFPAY ==
[2025-08-05 16:37] LABS: Syphilis IgG/IgM Antibody Non-Reactive (Nonreactive)
--- OUTSIDE RECORDS SUMMARY | 2025-08-06 03:09 | XMS_ITS | Clinical Summary ---
Author Organization [facility] Address [address] [facility] [place] [address] Care Team Providers Care Fishing Tool Supervisor Name Role Phone Raleigh Barber MD Primary Care Provider [phone] Source Comments [facility],non-owned Affiliates and Associated Physician Practices is amultiple site organization consisting of ambulatory clinics and hospital sitesin [place], [place], [place] and [place]. This disclosure is being madepursuant to the Care Everywhere program and may not contain all information available regarding this patient. Last updated 18.[facility] Allergies Active Allergy Reactions Criticality Noted Date Comments Cefaclor Rash Medium 09/14/2021 Cephalexin Rash Medium 09/14/2021 Medications * Be aware that medications may not be up to date on this document. Alwaysverify current medications with the patient. 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
--- OUTSIDE RECORDS SUMMARY | 2025-08-06 03:09 | XMS_ITS | Clinical Summary ---
Author Organization [facility] Address [address] [place] [address] Care Team Providers Care Farm Instructor Name Role Phone Narendra Holden MD Primary Care Provider [phone] Allergies Active Allergy Reactions Criticality Noted Date Comments Cefaclor Rash Medium 09/14/2021 Cephalexin Rash Medium 09/14/2021 Encounters Date Type Department Care Team Description 05/28/2025 3:08 PM CDT - 05/28/2025 11:59 PM CDT Hospital Encounter [facility] Ul[facility]ound [facility] [place], [place] [address] Encounter for supervision of normal , antepartum, [...] on file 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 Gender Identity Not on file Sexual Orientation Not on file Obstetrics History Para Term AB IAB SAB Ectopic Multiple Livin g Live Births 1 Date Outcome GA Total Labor Labor/2nd/3rd Weight Sex Type Anes PTL Clarisa A1 A5 Name Clin Last Filed Vital Signs Vital Sign Reading Time Taken Comments Blood Pressure 124/61 09/15/2021 12:59 AM ELECTRONIC OPERATOR Pulse 72 09/15/2021 12:59 AM ELECTRONIC OPERATOR Temperature 36.7 C (98.1 F) 09/14/2021 8:58 PM ELECTRONIC OPERATOR Respiratory Rate 20 09/15/2021 12:59 AM ELECTRONIC OPERATOR Oxygen Saturation 99% 09/14/2021 8:58 PM ELECTRONIC OPERATOR Inhaled Oxygen Concentration - - Weight 92.7 kg (204 lb 5.9 oz) 09/14/2021 8:58 P M ELECTRONIC OPERATOR Height 162.6 cm (5' 4) 09/14/2021 8:58 PM ELECTRONIC OPERATOR Body Mass Index 35.08 09/14/2021 8:58 PM ELECTRONIC OPERATOR Plan of Treatment Health Maintenance Due Date [...] Wayne Bush M.D. CH: MIKEY Report ID: [id number] Reading Location: [id number] Procedure Note Wayne Bush MD - 05/30/2025 [...] Wayne Bush M.D. CH: MIKEY Report ID: [id number] Reading Location: [place] [address] [place] Anabelle Landaverde COLDFUSION IMG OB US PROCEDURES Fi nal Result from Last 3 Months Insurance [facility] [place] Care Teams Farm Instructor Relationship Specialty Start Date End Date Narendra Holden MD PCP - General 11/12/18
== END 2025-08-05 15:35 | disposition home or self-care (01) ==
LOC: ANHLAB 15:35
PROVIDERS: Visit Provider Nurse Practitioner Family
DX: Z34.02 Encounter for supervision of normal first pregnancy, second trimester (principal); Z3A.00 Weeks of gestation of pregnancy not specified
CPT/HCPCS: 36415; 86593